=== PATIENT | female | born 2005 | race Caucasian/White ===

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

== ENCOUNTER 2024-10-03 13:43 | Emergency (ER) | payer SELFPAY ==
[2024-10-03 14:33] VITALS: RESP 18
[2024-10-03] MEDS: KETOROLAC 15 MG/ML 1 ML VIAL IM STA (15:30)
[2024-10-03] MEDS: DEXAMETHASONE SOD PHOSPHATE 10 MG/ML 1 ML VIAL IM STA (15:37)
[2024-10-03] MEDS: ORPHENADRINE 30 MG/ML 2 ML VIAL IM STA (16:00)
--- NOTE | 2024-10-03 16:23 | ED ---
General Adult HPI - General Chief complaint: Seizure Stated complaint: Syncope Time Seen by Provider: 10/03/24 15:12 Source: patient Mode of arrival: wheelchair Limitations: no limitations - History of Present Illness Initial comments: 18-year-old female presenting with chief complaint of lower back pain. Patient has history of back pain after receiving an epidural 2 years ago. States that she was at work and twisted while pulling a box and felt sudden onset pain across lower back. No loss of bowel or bladder control or saddle paresthesia. No radiation into the legs or abdomen. No dysuria or hematuria. No fevers or chills. She did have some nausea and vomiting secondary to the pain. No IV drug use. 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 At this time she is alert and oriented showing no evidence of postictal period - Related Data Home Medications Medication Instructions Recorded Confirmed Pnv No.95/Ferrous Fum/Folic AC 1 tab PO DAILY 05/02/22 09/15/22 [ Multivitamin Tablet] Previous Rx's Medication Instructions Recorded Acetaminophen Tab [Tylenol] 650 mg PO Q6H #60 tab 09/16/22 Ondansetron [Zofran] 4 mg PO Q8HR PRN #20 tab 09/16/22 Cyclobenzaprine [Flexeril] 10 mg PO TID PRN #10 tab 10/03/24 Allergies Allergy/AdvReac Type Severity Reaction Status Date / Time amoxicillin Allergy Swelling Verified 09/15/22 15:47 Review of Systems ROS Statement: Those systems with pertinent positive or pertinent negative responses have been documented in the HPI. ROS Other: All systems not noted in ROS Statement are negative. Past Medical History Past Medical History: No Reported History Additional Past Medical History / Comment(s): [facility]. pseudoseizure History of Any Multi-Drug Resistant Organisms: None Reported Past Surgical History: No Surgical Hx Reported Past Anesthesia/Blood Transfusion Reactions: No Reported Reaction Past Psychological History: No Psychological Hx Reported Smoking Status: Former smoker Past Alcohol Use History: None Reported Past Drug Use History: Marijuana - Past Family History Mother Family Medical History: No Reported History Father Family Medical History: Diabetes Mellitus General Exam Limitations: no limitations General appearance: alert, in no apparent distress Head exam: Present: atraumatic, normocephalic, normal inspection Eye exam: Present: normal appearance, PERRL, EOMI Neck exam: Present: normal inspection. Absent: meningismus Respiratory exam: Present: normal lung sounds bilaterally. Absent: respiratory distress, wheezes, rales, rhonchi, stridor Cardiovascular Exam: Present: regular rate, normal rhythm, normal heart sounds. Absent: systolic murmur, diastolic murmur, rubs, gallop, clicks Extremities exam: Present: normal inspection Back exam: Present: normal inspection, paraspinal tenderness. Absent: vertebral tenderness Neurological exam: Present: alert, oriented X3 Expanded Eye Response: (4) open spontaneously Motor Response: (6) obeys commands Verbal Response: (5) oriented Karen Total: 15 Psychiatric exam: Present: normal affect, normal mood Skin exam: Present: warm, dry Course Vital Signs 10/03/24 10/03/24 10/03/24 13:57 14:32 16:32 Temperature 98.7 F 98 F Pulse Rate 86 90 68 Respiratory 16 18 18 Rate Blood Pressure 117/73 98/57 111/78 O2 Sat by Pulse 99 100 98 Oximetry Medical Decision Making - Medical Decision Making Was pt. sent in by a medical professional or institution (, PA, PASTEURIZER, urgent care, hospital, or assisted...) When possible be specific @ -No Did you speak to anyone other than the patient for history (EMS, parent, family, police, friend...)? What history was obtained from this source @ -No Did you review nursing and triage notes (agree or disagree)? Why? @ -I reviewed and agree with nursing and triage notes Were old charts reviewed (outside hosp., previous admission, EMS record, old EKG, old radiological studies, urgent care reports/EKG's, assisted records)? Report findings @ -No old charts were reviewed Differential Diagnosis (chest pain, altered mental status, abdominal pain women, abdominal pain men, vaginal bleeding, weakness, fever, dyspnea, syncope, headache, dizziness, GI bleed, back pain, seizure, CVA, palpatations, mental health, musculoskeletal)? @ - [facility] Differential Back Pain: Strain, zoster, cauda equina syndrome, epidural abscess, vertebral osteomyelitis, discitis, fracture, subluxation, disc herniation, DJD, spinal stenosis, dissection, AAA, pancreatitis, peptic ulcer disease, pyelonephritis, kidney stone this is not meant to be an all-inclusive list. EKG interpreted by me (3pts min.). @ -Sinus bradycardia ventricular rate 58. AR interval 142. QRS 87. QT 387. QTc 385. X-rays interpreted by me (1pt min.). @ -None done CT interpreted by me (1pt min.). @ -None done U/S interpreted by me (1pt. min.). @ -None done What testing was considered but not performed or refused? (CT, X-rays, U/S, labs)? Why? @ -None What meds were considered but not given or refused? Why? @ -None Did you discuss the management of the patient with other professionals (professionals i.e. , PA, PASTEURIZER, lab, RT, psych nurse, protective services social worker, heavy coil winder, teacher, airplane first officer, case assistant)? Give summary @ -No Was smoking cessation discussed for >3mins.? @ -No Was critical care preformed (if so, how long)? @ -No Were there social determinants of health that impacted care today? How? (Homelessness, low income, unemployed, alcoholism, drug addiction, transportation, low edu. Level, literacy, decrease access to med. care, correction, rehab)? @ -No Was there de-escalation of care discussed even if they declined (Discuss DNR or withdrawal of care, Hospice)? DNR status @ -No What co-morbidities impacted this encounter? (DM, HTN, Smoking, COPD, CAD, Cancer, CVA, ARF, Chemo, Hep., AIDS, mental health diagnosis, sleep apnea, morbid obesity)? @ -None Was patient admitted / discharged? Hospital course, mention meds given and route, prescriptions, significant lab abnormalities, going to OR and other pertinent info. @ -18-year-old female presenting with chief complaint of lower back pain. Injured it while at work today, had lower back pain starting after an epidural 2 years ago. No red flag symptoms. Patient does have history of stress and pain induced pseudoseizures, she did have a seizure today. EKG shows sinus bradycardia. Patient is treated with pain medication and on reassessment reports improvement in her symptoms. She feels ready for discharge home. Educated on today's findings and supportive management at home. Discharged. Follow-up with PCP. Report back to ER with any new or worsening symptoms. Discussed return parameters and answered all questions. Patient conveyed verbal understanding and agreed to the plan. I discussed this case in detail with my attending Dr. Mcguire Undiagnosed new problem with uncertain prognosis? @ -No Drug Therapy requiring intensive monitoring for toxicity (Heparin, Nitro, Insulin, Cardizem)? @ -No Were any procedures done? @ -No Diagnosis/symptom? @ -Mechanical back pain, pseudoseizure Acute, or Chronic, or Acute on Chronic? @ -Acute Uncomplicated (without systemic symptoms) or Complicated (systemic symptoms)? @ -Uncomplicated Side effects of treatment? @ -No Exacerbation, Progression, or Severe Exacerbation? @ -No Poses a threat to life or bodily function? How? (Chest pain, [place], [place], pneumonia, PE, COPD, DKA, ARF, appy, cholecystitis, CVA, Diverticulitis, Homicidal, Suicidal, threat to staff... and all critical care pts) @ -Unlikely Disposition Clinical Impression: Mechanical back pain Disposition: HOME SELF-CARE Condition: Good Instructions (If sedation given, give patient instructions): Acute Low Back Pain (ED), Recurrent Seizures in Adults (ED) Additional Instructions: Follow-up with PCP. Report back to ER with any new or worsening symptoms. Take medication as prescribed. Cyclobenzaprine may cause drowsiness. Per [place] law you cannot drive for 6 months after having a seizure. Avoid nonmonitored swimming Prescriptions: Cyclobenzaprine [Flexeril] 10 mg PO TID PRN #10 tab PRN Reason: Spasms Is patient prescribed a controlled substance at d/c from ED?: No Referrals: [facility] [NON-STAFF] - 1-2 days [facility] [NON-STAFF] - 1-2 days None,Stated [Primary Care Provider] - 1-2 days Forms: Area PCPs Time of Disposition: 16:22
[2024-10-03] MEDS: CYCLOBENZAPRINE 10MG STARTER 3 TAB BTL PO STA (16:30)
[2024-10-03 16:34] VITALS: BP 111/78; PULSE 68; TEMP 98
== END 2024-10-03 16:33 | disposition home or self-care (01) ==
LOC: EC 13:43
DX: M54.50 Low back pain, unspecified (principal); R56.9 Unspecified convulsions; R00.1 Bradycardia, unspecified; Z88.0 Allergy status to penicillin; Z87.891 Personal history of nicotine dependence
CPT/HCPCS: 93005; 99284; 96372 ×3; J1100; J2360; J1885

== ENCOUNTER 2024-10-12 20:42 | Observation (INO) | payer OTHER ==
--- NOTE | 2024-10-12 21:24 | ED ---
General Adult HPI - General Chief complaint: Abdominal Pain Stated complaint: abd pain Time Seen by Provider: 10/12/24 21:05 Source: patient, RN notes reviewed, old records reviewed Mode of arrival: ambulatory Limitations: no limitations - History of Present Illness Initial comments: Patient is a 18-year-old female presents emergency department complaining of right upper quadrant abdominal pain. States has been ongoing for 1 week. Has been taking naproxen for it without much improvement. Has a history of cholecystectomy. States there is no way she is . Patient does smoke marijuana. Denies any nausea, vomiting, diarrhea, constipation. Denies any vaginal discharge or bleeding. Denies any urinary complaints. Denies any chest pain or shortness of breath. States she fell asleep weird on a chair a week ago which started the pain. States it is worse with some eating as well as with movement. Has no other acute complaints. Presents for further evaluation.Patient does have a history of pseudoseizures, and recently was seen in our department for that complaint. - Related Data Home Medications Medication Instructions Recorded Confirmed Pnv No.95/Ferrous Fum/Folic AC 1 tab PO DAILY 05/02/22 09/15/22 [ Multivitamin Tablet] Previous Rx's Medication Instructions Recorded Acetaminophen Tab [Tylenol] 650 mg PO Q6H #60 tab 09/16/22 Ondansetron [Zofran] 4 mg PO Q8HR PRN #20 tab 09/16/22 Cyclobenzaprine [Flexeril] 10 mg PO TID PRN #10 tab 10/03/24 Allergies Allergy/AdvReac Type Severity Reaction Status Date / Time amoxicillin Allergy Swelling Verified 10/12/24 20:49 Review of Systems ROS Statement: Those systems with pertinent positive or pertinent negative responses have been documented in the HPI. Review of Systems: CONST: Denies fever EYES: Denies blurry vision ENT: Denies nasal congestion C/V: Denies Chest pain RESP: Denies shortness of breath GI: Endorses right upper quadrant abdominal pain : Denies dysuria SKIN: Denies rash. MSK: Denies joint pain. NEURO: Denies headache ROS Other: All systems not noted in ROS Statement are negative. Past Medical History Past Medical History: No Reported History Additional Past Medical History / Comment(s): CHS. pseudoseizure History of Any Multi-Drug Resistant Organisms: None Reported Past Surgical History: No Surgical Hx Reported Past Anesthesia/Blood Transfusion Reactions: No Reported Reaction Past Psychological History: No Psychological Hx Reported Smoking Status: Former smoker Past Alcohol Use History: None Reported Past Drug Use History: Marijuana - Past Family History Mother Family Medical History: No Reported History Father Family Medical History: Diabetes Mellitus General Exam - General Exam Comments Initial Comments: General: Patient appears in moderate distress secondary to pain. HEAD: Normal with no signs of head trauma. EYES: EOMI ENT: Hearing grossly intact, normal oropharynx. RESPIRATORY: Clear breath sounds bilaterally. No wheezes, rales, or rhonchi. C/V: Regular rate and rhythm. S1 and S2 auscultated, no edema, peripheral pulses 2+ and intact throughout ABD: Abdomen soft, nondistended. Tender palpation in the right upper quadrant. No guarding or rebound tenderness. No peritoneal signs. EXT: No obvious deformity. SKIN: No rashes or lesions observed on exposed skin. NEURO: Alert and oriented x 4. Limitations: no limitations Course Vital Signs 10/12/24 20:46 Temperature 98.1 F Pulse Rate 134 H Respiratory 20 Rate Blood Pressure 101/79 O2 Sat by Pulse 97 Oximetry Medical Decision Making - Medical Decision Making Was pt. sent in by a medical professional or institution (, PA, SALES DEVELOPMENT CONSULTANT, urgent care, hospital, or group home...) When possible be specific @ -No Did you speak to anyone other than the patient for history (EMS, parent, family, police, friend...)? What history was obtained from this source @ -No Did you review nursing and triage notes (agree or disagree)? Why? @ -I reviewed and agree with nursing and triage notes Were old charts reviewed (outside hosp., previous admission, EMS record, old EKG, old radiological studies, urgent care reports/EKG's, group home records)? Report findings @ -No old charts were reviewed Differential Diagnosis (chest pain, altered mental status, abdominal pain women, abdominal pain men, vaginal bleeding, weakness, fever, dyspnea, syncope, headache, dizziness, GI bleed, back pain, seizure, CVA, palpatations, mental health, musculoskeletal)? @ -Differential Abdominal Pain Women: Appendicitis, Cholecystitis, diverticulosis, ischemic bowel, pancreatitis, hepatitis, UTI, gastroenteritis, AAA, incarcerated hernia, bowel obstruction, constipation, inflammatory bowel, hepatitis, peptic ulcer disease, splenic infarction, perforated viscus, vulvitis, ovarian torsion, PID, kidney stone, placenta abruption, this is not meant to be an all-inclusive list EKG interpreted by me (3pts min.). @ -None done X-rays interpreted by me (1pt min.). @ -None done CT interpreted by me (1pt min.). @ -CT imaging remarkable for acute appendicitis. U/S interpreted by me (1pt. min.). @ -None done What testing was considered but not performed or refused? (CT, X-rays, U/S, lab s)? Why? @ -None What meds were considered but not given or refused? Why? @ -None Did you discuss the management of the patient with other professionals (professionals i.e. , PA, SALES DEVELOPMENT CONSULTANT, lab, RT, psych nurse, older adult social work specialist, communications media professor, teacher, airplane first officer, insurance case manager)? Give summary @ - spoke with the patient's surgeon, Dr. Azar who accepted the admission was in agreement with the plan. Was smoking cessation discussed for >3mins.? @ -No Was critical care preformed (if so, how long)? @ -No Were there social determinants of health that impacted care today? How? (Homelessness, low income, unemployed, alcoholism, drug addiction, transportation, low edu. Level, literacy, decrease access to med. care, shelter, rehab)? @ -No Was there de-escalation of care discussed even if they declined (Discuss DNR or withdrawal of care, Hospice)? DNR status @ -No What co-morbidities impacted this encounter? (DM, HTN, Smoking, COPD, CAD, Cancer, CVA, ARF, Chemo, Hep., AIDS, mental health diagnosis, sleep apnea, morbid obesity)? @ -Cholecystectomy Was patient admitted / discharged? Hospital course, mention meds given and route, prescriptions, significant lab abnormalities, going to OR and other pertinent info. @ -Patient presents emergency department complaining of abdominal pain. Has been ongoing for 1 week. No improvement. Will obtain abdominal laboratory studies and CT abdomen pelvis. Patient after multiple questions, continues to reiterate she is not therefore we will obtain CT imaging rather than wait for test. She was in agreement this plan. Patient be sym ptomatic treated with IV fluids, analgesia medications, Zofran, Protonix. Patient was in agreement this plan. Vital signs currently within acceptable limits except for mild tachycardia due to discomfort and pain. After analgesia medication, patient was still having significant pain and therefore was administered both Haldol and Benadryl which did improve the patient's symptoms. Laboratory studies obtained and revealed a leukocytosis of 16.9. The remainder the labs relatively unremarkable. 2+ ketones in the urine. UDS positive for marijuana. White cells in the urine as well but no evidence of bacteria. May be a contaminated catch. CT imaging reveals findings consistent with acute appendicitis with no evidence of appendix rupture or abscess. I updated the patient. She will be admitted to the hospital. She is allergic to amoxicillin. Chart therefore will start on ciprofloxacin and Flagyl. She is made NPO. Will continue with IV fluids, antiemetics, analgesia medications. I spoke with the patient's surgeon, Dr. Azar who accepted the admission was in agreement with the plan. Undiagnosed new problem with uncertain prognosis? @ -No Drug Therapy requiring intensive monitoring for toxicity (Heparin, Nitro, Insulin, Cardizem)? @ -No Were any procedures done? @ -No Diagnosis/symptom? @ -Appendicitis Acute, or Chronic, or Acute on Chronic? @ -Acute Uncomplicated (without systemic symptoms) or Complicated (systemic symptoms)? @ -Complicated Side effects of treatment? @ -None Exacerbation, Progression, or Severe Exacerbation] @ -No Poses a threat to life or bodily function? @ -Yes - Lab Data Result diagrams: 10/12/24 21:27 10/12/24 21:27 Lab Results 10/12/24 10/12/24 10/12/24 Range/Units 21:27 21:27 21:27 WBC 16.9 H (4.0-11.0) k/uL RBC 4.28 (3.80-5.40) m/uL Hgb 10.7 L (11.4-16.0) gm/dL Hct 32.9 L (34.0-46.0) % MCV 76.8 L (80.0-100.0) fL MCH 25.0 (25.0-35.0) pg MCHC 32.6 (31.0-37.0) g/dL RDW 15.4 (11.5-15.5) % Plt Count 534 H (150-450) k/uL MPV 7.4 Neutrophils % 83 % Lymphocytes % 12 % Monocytes % 3 % Eosinophils % 1 % Basophils % 0 % Neutrophils # 13.9 H (1.3-7.7) k/uL Lymphocytes # 2.0 (1.0-4.8) k/uL Monocytes # 0.6 (0-1.0) k/uL Eosinophils # 0.2 (0-0.7) k/uL Basophils # 0.1 (0-0.2) k/uL Microcytosis Slight PT 11.6 (10.0-12.5) sec INR 1.1 (<1.2) APTT 26.7 (22.0-30.0) sec Sodium 141 (137-145) mmol/L Potassium 3.9 (3.5-5.1) mmol/L Chloride 107 (98-107) mmol/L Carbon Dioxide 19 L (22-30) mmol/L Anion Gap 15 mmol/L BUN 18 H (7-17) mg/dL Creatinine 0.73 (0.52-1.04) mg/dL Est GFR (CKD-EPI)AfAm >90 (>60 ml/min/1.73 sqM) Est GFR (CKD-EPI)NonAf >90 (>60 ml/min/1.73 sqM) Glucose 99 (74-99) mg/dL Plasma Lactic Acid Jamei (0.7-2.0) mmol/L Calcium 10.1 (8.4-10.2) mg/dL Total Bilirubin 0.4 (0.2-1.3) mg/dL AST 22 (14-36) U/L ALT 15 (4-34) U/L Alkaline Phosphatase 81 (38-126) U/L Total Protein 8.0 (6.3-8.2) g/dL Albumin 4.6 (3.5-5.0) g/dL Amylase 42 (30-110) U/L Lipase 35 (23-300) U/L Urine Color Urine Appearance (Clear) Urine pH (5.0-8.0) Ur Specific [place] (1.001-1.035) Urine Protein (Negative) Urine Glucose (UA) (Negative) Urine Ketones (Negative) Urine Blood (Negative) Urine Nitrite (Negative) Urine Bilirubin (Negative) Urine Urobilinogen (<2.0) mg/dL Ur Leukocyte Esterase (Negative) Urine RBC (0-5) /hpf Urine WBC (0-5) /hpf Ur Squamous Epith Cells (0-4) /hpf Urine Mucus (None) /hpf Urine Opiates Screen (NotDetected) Ur Oxycodone Screen (NotDetected) Urine Methadone Screen (NotDetected) Ur Barbiturates Screen (NotDetected) U Tricyclic Antidepress (NotDetected) Ur Phencyclidine Scrn (NotDetected) Ur Amphetamines Screen (NotDetected) U Methamphetamines Scrn (NotDetected) U Benzodiazepines Scrn (NotDetected) Urine Cocaine Screen (NotDetected) U Marijuana (THC) Screen (NotDetected) 10/12/24 10/12/24 10/12/24 Range/Units 21:27 21:43 21:43 WBC (4.0-11.0) k/uL RBC (3.80-5.40) m/uL Hgb (11.4-16.0) gm/dL Hct (34.0-46.0) % MCV (80.0-100.0) fL MCH (25.0-35.0) pg MCHC (31.0-37.0) g/dL RDW (11.5-15.5) % Plt Count (150-450) k/uL MPV Neutrophils % % Lymphocytes % % Monocytes % % Eosinophils % % Basophils % % Neutrophils # (1.3-7.7) k/uL Lymphocytes # (1.0-4.8) k/uL Monocytes # (0-1.0) k/uL Eosinophils # (0-0.7) k/uL Basophils # (0-0.2) k/uL Microcytosis PT (10.0-12.5) sec INR (<1.2) APTT (22.0-30.0) sec Sodium (137-145) mmol/L Potassium (3.5-5.1) mmol/L Chloride (98-107) mmol/L Carbon Dioxide (22-30) mmol/L Anion Gap mmol/L BUN (7-17) mg/dL Creatinine (0.52-1.04) mg/dL Est GFR (CKD-EPI)AfAm (>60 ml/min/1.73 sqM) Est GFR (CKD-EPI)NonAf (>60 ml/min/1.73 sqM) Glucose (74-99) mg/dL Plasma Lactic Acid Jamie 1.9 (0.7-2.0) mmol/L Calcium (8.4-10.2) mg/dL Total Bilirubin (0.2-1.3) mg/dL AST (14-36) U/L ALT (4-34) U/L Alkaline Phosphatase (38-126) U/L Total Protein (6.3-8.2) g/dL Albumin (3.5-5.0) g/dL Amylase (30-110) U/L Lipase (23-300) U/L Urine Color Yellow Urine Appearance Cloudy H (Clear) Urine pH 5.5 (5.0-8.0) Ur Specific [place] 1.029 (1.001-1.035) Urine Protein 1+ H (Negative) Urine Glucose (UA) Negative (Negative) Urine Ketones 2+ H (Negative) Urine Blood Negative (Negative) Urine Nitrite Negative (Negative) Urine Bilirubin Negative (Negative) Urine Urobilinogen 2.0 (<2.0) mg/dL Ur Leukocyte Esterase Moderate H (Negative) Urine RBC 1 (0-5) /hpf Urine WBC 14 H (0-5) /hpf Ur Squamous Epith Cells 3 (0-4) /hpf Urine Mucus Many H (None) /hpf Urine Opiates Screen Detected H (NotDetected) Ur Oxycodone Screen Not Detected (NotDetected) Urine Methadone Screen Not Detected (NotDetected) Ur Barbiturates Screen Not Detected (NotDetected) U Tricyclic Antidepress Not Detected (NotDetected) Ur Phencyclidine Scrn Not Detected (NotDetected) Ur Amphetamines Screen Not Detected (NotDetected) U Methamphetamines Scrn Not Detected (NotDetected) U Benzodiazepines Scrn Not Detected (NotDetected) Urine Cocaine Screen Not Detected (NotDetected) U Marijuana (THC) Screen Detected H (NotDetected) Disposition Clinical Impression: Appendicitis Disposition[facility] Condition: Stable Referrals: None,Stated [Primary Care Provider] - 1-2 days Time of Disposition: 22:40
[2024-10-12] MEDS: MORPHINE SULFATE 4 MG/ML SYRINGE IVP STA (21:32)
[2024-10-12] MEDS: ONDANSETRON 4 MG/2 ML VIAL IVP STA (21:35)
[2024-10-12] MEDS: PANTOPRAZOLE 40 MG/10 ML VIAL IVP STA (21:37)
[2024-10-12 21:47] LABS: Basophils # (A) 0.1 k/uL (0-0.2); Basophils % (A) 0 %; Eosinophils # (A) 0.2 k/uL (0-0.7); Eosinophils % (A) 1 %; HCT 32.9 % (34.0-46.0); HGB 10.7 gm/dL (11.4-16.0); Lymphocytes % (A) 12 %; MCHC 32.6 g/dL (31.0-37.0); MCV 76.8 fL (80.0-100.0); Mean Platelet Volume 7.4; Microcytosis Slight; Monocytes # (A) 0.6 k/uL (0-1.0); Monocytes % (A) 3 %; Neutrophils # (A) 13.9 k/uL (1.3-7.7); Neutrophils % (A) 83 %; Platelet Count 534 k/uL (150-450); RBC 4.28 m/uL (3.80-5.40); RDW 15.4 % (11.5-15.5); WBC 16.9 k/uL (4.0-11.0)
[2024-10-12] MEDS: SODIUM CHLORIDE 0.9% 1,000 ML IV STA ×2 (21:53→23:37)
[2024-10-12 22:00] LABS: INR 1.1 (<1.2); Partial Thromboplastin Time 26.7 sec (22.0-30.0); Prothrombin Time 11.6 sec (10.0-12.5)
[2024-10-12] MEDS: diphenhydrAMINE 50 MG/ML 1 ML VIAL IVP STA (22:02)
[2024-10-12] MEDS: HALOPERIDOL LACTATE 5 MG/ML 1 ML VIAL IVP STA (22:03)
[2024-10-12 22:06] LABS: Appearance,Urine Cloudy (Clear); Bilirubin,Urine Negative (Negative); Blood,Urine Negative (Negative); Color,Urine Yellow; Glucose,Urine (UA) Negative (Negative); Ketones,Urine 2+ (Negative); Leukocyte Esterase,Urine Moderate (Negative); Mucus,Urine Many /hpf; Nitrite,Urine Negative (Negative); PH, Urine 5.5 (5.0-8.0); Protein,Urine 1+ (Negative); RBC,Urine 1 /hpf (0-5); Specific Gravity,Urine 1.029 (1.001-1.035); Squamous Epithelial Cell,Urine 3 /hpf (0-4); WBC,Urine 14 /hpf (0-5)
[2024-10-12 22:07] LABS: ALT 15 U/L (4-34); AST 22 U/L (14-36); African American GFR (CKD) >90 (>60 ml/min/1.73 sqM); Albumin 4.6 g/dL (3.5-5.0); Alkaline Phosphatase 81 U/L (38-126); Amylase 42 U/L (30-110); Anion Gap 15 mmol/L; Blood Urea Nitrogen 18 mg/dL (7-17); Calcium 10.1 mg/dL (8.4-10.2); Carbon Dioxide 19 mmol/L (22-30); Chloride 107 mmol/L (98-107); Glucose 99 mg/dL (74-99); Lipase 35 U/L (23-300); Non-African American GFR(CKD) >90 (>60 ml/min/1.73 sqM); Potassium 3.9 mmol/L (3.5-5.1); Sodium 141 mmol/L (137-145); Total Bilirubin 0.4 mg/dL (0.2-1.3)
--- NOTE | 2024-10-12 22:19 | CT ---
EXAMINATION TYPE: CT abdomen pelvis w con DATE OF EXAM: 10/12/2024 9:53 PM COMPARISON: CT abdomen pelvis most recent from CLINICAL INDICATION: Female, 18 years old with history of abdominal pain. RUQ. hx of cholecystectomy; TECHNIQUE: Axial CT abdomen pelvis w con;Sagittal and coronal reformats were created on a separate w orkstation. Automated exposure control for dose reduction was used. FINDINGS: LOWER CHEST: Unremarkable ABDOMEN LIVER: Unremarkable GALLBLADDER AND BILE DUCTS: Gallbladder surgically absent. Dilated CBD, likely postcholecystectomy re lated. PANCREAS: Unremarkable. SPLEEN: Unremarkable. ADRENAL GLANDS: Unremarkable. KIDNEYS AND URETERS: No evidence of hydronephrosis or renal calculus. The ureters are unremarkable. PELVIS BLADDER: No evidence for wall thickening or mass given limitations of exam. REPRODUCTIVE: Unremarkable. ABDOMEN & PELVIS STOMACH AND BOWEL: No evidence of bowel obstruction. Liquid stool in the ascending colon suggesting d iarrhea. Overall, evaluation limited due to paucity of intra-abdominal fat. There is avid enhancement and wall thickening of the appendix with adjacent fat stranding in the right lower quadrant (axial s eries image 61). Appendix measures approximately 5-6 mm in diameter and is fluid-filled. Nonspecific fluid-filled nondilated small bowel loops could reflect ileus. PERITONEUM/RETROPERITONEUM: No evidence of pneumoperitoneum or free fluid. VASCULATURE: No evidence of aortic aneurysm. MUSCULOSKELETAL: No acute osseous abnormalities LYMPH NODES: No gross evidence for lymphadenopathy. SOFT TISSUE/ABDOMINAL WALL: Unremarkable IMPRESSION: Avid enhancement/wall thickening of the appendix with adjacent right lower quadrant mesenteric fat st randing. Appendix is near the upper limits of normal in caliber and appears fluid filled. Overall, fi ndings are suggestive of developing/early acute appendicitis in the appropriate clinical setting. No evidence of abscess or free air. [facility], , 10/12/2024 10:17 PM
[2024-10-12 22:28] LABS: Amphetamine Screen,Urine Not Detected (NotDetected); Barbiturate Screen,Urine Not Detected (NotDetected); Benzodiazepines Screen,Urine Not Detected (NotDetected); Cocaine Screen,Urine Not Detected (NotDetected); Methadone Screen, Urine Not Detected (NotDetected); Opiate Screen,Urine Detected (NotDetected); Oxycodone Screen, Urine Not Detected (NotDetected); Phencyclidine Screen,Urine Not Detected (NotDetected); Tricyclic Antidepressant,Urine Not Detected (NotDetected); Urn Cannabinoid Scrn Detected (NotDetected)
[2024-10-12] MEDS ORDERED: NALOXONE 0.4 MG/ML 1 ML VIAL IV PRN (22:38)
[2024-10-12] MEDS: metroNIDAZOLE-NS PMX 500 MG in SALINE 1 100ML.BAG IVPB SCH (22:44)
[2024-10-13] MEDS: MORPHINE SULFATE 4 MG/ML SYRINGE IV PRN (00:22)
[2024-10-13] MEDS: LEVOFLOXACIN 500MG-D5W PMX 500 MG in DEXTROSE/WATER 1 100ML.BAG IVPB SCH (02:04)
[2024-10-13] MEDS: SODIUM CHLORIDE 0.9% 1,000 ML IV STA (02:04)
[2024-10-13 04:36] LABS: Basophils % (A) 0 %; Eosinophils # (A) 0.2 k/uL (0-0.7); Eosinophils % (A) 2 %; HCT 28.3 % (34.0-46.0); Hypochromasia Moderate; Lymphocytes # (A) 2.2 k/uL (1.0-4.8); Lymphocytes % (A) 20 %; MCH 26.3 pg (25.0-35.0); MCHC 32.4 g/dL (31.0-37.0); MCV 81.2 fL (80.0-100.0); Mean Platelet Volume 7.1; Monocytes # (A) 0.8 k/uL (0-1.0); Monocytes % (A) 8 %; Neutrophils # (A) 7.3 k/uL (1.3-7.7); Neutrophils % (A) 69 %; Platelet Count 336 k/uL (150-450); RBC 3.48 m/uL (3.80-5.40); RDW 15.6 % (11.5-15.5); WBC 10.7 k/uL (4.0-11.0)
[2024-10-13 04:42] LABS: HGB 9.2 gm/dL (11.4-16.0)
[2024-10-13 04:45] LABS: ALT 24 U/L (4-34); AST 50 U/L (14-36); African American GFR (CKD) >90 (>60 ml/min/1.73 sqM); Albumin 3.2 g/dL (3.5-5.0); Alkaline Phosphatase 80 U/L (38-126); Anion Gap 8 mmol/L; Blood Urea Nitrogen 15 mg/dL (7-17); Calcium 8.3 mg/dL (8.4-10.2); Carbon Dioxide 18 mmol/L (22-30); Chloride 112 mmol/L (98-107); Glucose 83 mg/dL (74-99); Non-African American GFR(CKD) >90 (>60 ml/min/1.73 sqM); Potassium 3.2 mmol/L (3.5-5.1); Sodium 138 mmol/L (137-145); Total Bilirubin 0.5 mg/dL (0.2-1.3)
[2024-10-13] MEDS: metroNIDAZOLE-NS PMX 500 MG in SALINE 1 100ML.BAG IVPB SCH (06:49)
[2024-10-13] MEDS: POTASSIUM CHLORIDE ER 20 MEQ TAB.ER PO STA (09:15)
[2024-10-13] MEDS: PANTOPRAZOLE 40 MG/10 ML VIAL IV SCH (09:15)
--- NOTE | 2024-10-13 10:47 | P.GSHP ---
History of Present Illness H&P Date: 10/13/24 CHIEF COMPLAINT: Abdominal pain HISTORY OF PRESENT ILLNESS: This is a 18-year-old female who presented to the hospital with complaints of right upper quadrant abdominal pain. Patient reports that she has had pain for about 1 week. She reports that the pain initially started in the right lower quadrant and is now moved up into the right upper quadrant of the abdomen. She denies any nausea or vomiting. She does report having some chills and sweats. CT scan abdomen pelvis had reported possible early development of appendicitis with evidence of wall thickening of the appendix and fat stranding. Past surgical history does include cholecystectomy. She denies any cardiac history. PAST MEDICAL HISTORY: none PAST SURGICAL HISTORY: Cholecystectomy MEDICATIONS: See below ALLERGIES: See below SOCIAL HISTORY: No illicit drug use. Patient reports it has been over a week since she last used marijuana REVIEW OF SYSTEMS: CONSTITUTIONAL: Denies fever or chills. HEENT: Denies blurred vision, vision changes, or eye pain. Denies hemoptysis CARDIOVASCULAR: Denies chest pain or pressure. RESPIRATORY: No shortness of breath. GASTROINTESTINAL: See HPI for pertinent findings HEMATOLOGIC: Denies bleeding disorders. GENITOURINARY: Denies any blood in urine or increased urinary frequency. SKIN: Denies pruitis. Denies rash. PHYSICAL EXAM: VITAL SIGNS: Reviewed GENERAL: Well-developed in no acute distress. HEENT: No sclera icterus. Extraocular movements grossly intact. Moist buccal mucosa. Head is atraumatic, normocephalic. No nasal drainage. ABDOMEN: Soft. Nondistended. Tenderness with palpation to the whole right side of the abdomen and down into the right lower quadrant. No guarding. No rebound tenderness NEUROLOGIC: Alert and oriented. Cranial nerves II through XII grossly intact. LABORATORY DATA: WBC 16.9 down to 10.7 Hgb 9.2 platelets 336 Sodium 138 potassium 3.2 creatinine 0.64 Urine hCG not detected Urine drug screen positive for opiates and marijuana use IMAGING: CT scan abdomen pelvis enhancement/wall thickening of the appendix with adjacent right lower quadrant mesenteric fat stranding. Appendix is near the upper limits of normal in caliber and appears fluid-filled. Overall findings suggest developing/early acute appendicitis. No abscess or free air. ASSESSMENT: 1. Acute appendicitis 2. Hypokalemia PLAN: -Patient scheduled for laparoscopic appendectomy today -Patient receiving potassium supplement -Keep patient n.p.o. -Continue antibiotics -Continue IV fluids -Continue pain management Physician Fire Control Technician B note has been reviewed by physician. Signing provider agrees with the documented findings, assessment, and plan of care. Past Medical History Past Medical History: No Reported History Additional Past Medical History / Comment(s): . pseudoseizure History of Any Multi-Drug Resistant Organisms: None Reported Past Surgical History: Cholecystectomy Past Anesthesia/Blood Transfusion Reactions: No Reported Reaction Past Psychological History: No Psychological Hx Reported Smoking Status: Former smoker Past Alcohol Use History: None Reported Additional Past Alcohol Use History / Comment(s): pt reports "use to be an alcoholic" stoppped drinking 4 years ago Past Drug Use History: Marijuana - Past Family History Mother Family Medical History: No Reported History Father Family Medical History: Diabetes Mellitus Medications and Allergies Home Medications Medication Instructions Recorded Confirmed Type Naproxen Sodium 550 mg PO Q8H PRN 10/13/24 10/13/24 History Allergies Allergy/AdvReac Type Severity Reaction Status Date / Time amoxicillin Allergy Anaphylaxis/swelling Verified 10/13/24 08:49 of feet/rash Surgical - Exam Vital Signs Temp Pulse Resp BP Pulse Ox 98.1 F 134 H 20 101/79 97 10/12/24 20:46 10/12/24 20:46 10/12/24 20:46 10/12/24 20:46 10/12/24 20:46 Results - Labs 10/13/24 04:08 10/13/24 04:08 Abnormal Lab Results - Last 24 Hours (Table) 10/12/24 10/12/24 10/12/24 Range/Units 21:27 21:27 21:43 WBC 16.9 H (4.0-11.0) k/uL RBC (3.80-5.40) m/uL Hgb 10.7 L (11.4-16.0) gm/dL Hct 32.9 L (34.0-46.0) % MCV 76.8 L (80.0-100.0) fL RDW (11.5-15.5) % Plt Count 534 H (150-450) k/uL Neutrophils # 13.9 H (1.3-7.7) k/uL Potassium (3.5-5.1) mmol/L Chloride (98-107) mmol/L Carbon Dioxide 19 L (22-30) mmol/L BUN 18 H (7-17) mg/dL Calcium (8.4-10.2) mg/dL AST (14-36) U/L Total Protein (6.3-8.2) g/dL Albumin (3.5-5.0) g/dL Urine Appearance Cloudy H (Clear) Urine Protein 1+ H (Negative) Urine Ketones 2+ H (Negative) Ur Leukocyte Esterase Moderate H (Negative) Urine WBC 14 H (0-5) /hpf Urine Mucus Many H (None) /hpf Urine Opiates Screen (NotDetected) U Marijuana (THC) Screen (NotDetected) 10/12/24 10/13/24 10/13/24 Range/Units 21:43 04:08 04:08 WBC (4.0-11.0) k/uL RBC 3.48 L (3.80-5.40) m/uL Hgb 9.2 L D (11.4-16.0) gm/dL Hct 28.3 L (34.0-46.0) % MCV (80.0-100.0) fL RDW 15.6 H (11.5-15.5) % Plt Count (150-450) k/uL Neutrophils # (1.3-7.7) k/uL Potassium 3.2 L (3.5-5.1) mmol/L Chloride 112 H (98-107) mmol/L Carbon Dioxide 18 L (22-30) mmol/L BUN (7-17) mg/dL Calcium 8.3 L (8.4-10.2) mg/dL AST 50 H (14-36) U/L Total Protein 6.0 L (6.3-8.2) g/dL Albumin 3.2 L (3.5-5.0) g/dL Urine Appearance (Clear) Urine Protein (Negative) Urine Ketones (Negative) Ur Leukocyte Esterase (Negative) Urine WBC (0-5) /hpf Urine Mucus (None) /hpf Urine Opiates Screen Detected H (NotDetected) U Marijuana (THC) Screen Detected H (NotDetected) Diabetes panel 10/12/24 10/13/24 Range/Units 21:27 04:08 Sodium 141 138 (137-145) mmol/L Potassium 3.9 3.2 L (3.5-5.1) mmol/L Chloride 107 112 H (98-107) mmol/L Carbon Dioxide 19 L 18 L (22-30) mmol/L BUN 18 H 15 (7-17) mg/dL Creatinine 0.73 0.64 (0.52-1.04) mg/dL Glucose 99 83 (74-99) mg/dL Calcium 10.1 8.3 L (8.4-10.2) mg/dL AST 22 50 H (14-36) U/L ALT 15 24 (4-34) U/L Alkaline Phosphatase 81 80 (38-126) U/L Total Protein 8.0 6.0 L (6.3-8.2) g/dL Albumin 4.6 3.2 L (3.5-5.0) g/dL Calcium panel 10/12/24 10/13/24 Range/Units 21:27 04:08 Calcium 10.1 8.3 L (8.4-10.2) mg/dL Albumin 4.6 3.2 L (3.5-5.0) g/dL Pituitary panel 10/12/24 10/13/24 Range/Units 21:27 04:08 Sodium 141 138 (137-145) mmol/L Potassium 3.9 3.2 L (3.5-5.1) mmol/L Chloride 107 112 H (98-107) mmol/L Carbon Dioxide 19 L 18 L (22-30) mmol/L BUN 18 H 15 (7-17) mg/dL Creatinine 0.73 0.64 (0.52-1.04) mg/dL Glucose 99 83 (74-99) mg/dL Calcium 10.1 8.3 L (8.4-10.2) mg/dL Adrenal panel 10/12/24 10/13/24 Range/Units 21:27 04:08 Sodium 141 138 (137-145) mmol/L Potassium 3.9 3.2 L (3.5-5.1) mmol/L Chloride 107 112 H (98-107) mmol/L Carbon Dioxide 19 L 18 L (22-30) mmol/L BUN 18 H 15 (7-17) mg/dL Creatinine 0.73 0.64 (0.52-1.04) mg/dL Glucose 99 83 (74-99) mg/dL Calcium 10.1 8.3 L (8.4-10.2) mg/dL Total Bilirubin 0.4 0.5 (0.2-1.3) mg/dL AST 22 50 H (14-36) U/L ALT 15 24 (4-34) U/L Alkaline Phosphatase 81 80 (38-126) U/L Total Protein 8.0 6.0 L (6.3-8.2) g/dL Albumin 4.6 3.2 L (3.5-5.0) g/dL
[2024-10-13] MEDS: HYDROmorphone 1 MG/ML 1 ML SYRINGE IVP PRN (11:41)
[2024-10-13 15:23] VITALS: BMI 18.8
[2024-10-13] MEDS: IV FLUID CONTINUATION 1,000 ML IV ONE (17:11)
[2024-10-13] MEDS: ONDANSETRON 4 MG/2 ML VIAL IVP PRN (17:15)
[2024-10-13] MEDS: HEPARIN SODIUM,PORCINE 5,000 UNIT/ML 1 ML VIAL SQ STA (17:17)
[2024-10-13] MEDS ORDERED: ROCURONIUM 10 MG/ML (5 ML VIAL) IV ONE (17:48)
[2024-10-13] MEDS ORDERED: SUCCINYLCHOLINE CHLORIDE 200 MG/10 ML VIAL IV ONE (17:48)
[2024-10-13] MEDS ORDERED: PROPOFOL 10 MG/ML 20 ML VIAL IV ONE (17:48)
[2024-10-13] MEDS ORDERED: LIDOCAINE 1% INJ 10MG/ML (20 ML MDV) ONE (17:48)
[2024-10-13] MEDS ORDERED: HYDROmorphone (PF) 1 MG/ML ONE (17:48)
[2024-10-13] MEDS ORDERED: fentaNYL (PF) 50 MCG/ML 2 ML AMP ONE (17:48)
[2024-10-13] MEDS ORDERED: MIDAZOLAM 2 MG/2 ML VIAL ONE (17:48)
[2024-10-13] MEDS ORDERED: NEOSTIGMINE 1 MG/ML 10 ML VIAL ONE (17:48)
[2024-10-13] MEDS ORDERED: GLYCOPYRROLATE 0.2 MG/ML 2 ML VIAL ONE (17:48)
[2024-10-13] MEDS ORDERED: KETOROLAC 15 MG/ML 1 ML VIAL ONE (17:48)
[2024-10-13] MEDS: LIDOCAINE 1%-EPI 1:100,000 20 ML VIAL SQ ONE (18:06)
[2024-10-13] MEDS ORDERED: ONDANSETRON 4 MG/2 ML VIAL IVP PRN (18:20)
[2024-10-13] MEDS ORDERED: HYDROmorphone 1 MG/ML 1 ML SYRINGE IVP PRN (18:20)
--- NOTE | 2024-10-13 18:20 | P.OP ---
Date of Procedure: 10/13/24 Preoperative Diagnosis: Appendicitis Postoperative Diagnosis: Appendicitis Procedure(s) Performed: Laparoscopic appendectomy Anesthesia: KRISH Surgeon: Luisito Azar Pathology: other (Appendix) Condition: stable Disposition: PACU Description of Procedure: Ro the patient's placed on the operating table in the supine position. The patient received general anesthesia. The abdomen was prepped and draped in the usual sterile fashion. The skin was anesthetized 1% local Xylocaine at the trocar sites. Using an 11 blade the skin was incised at the umbilicus. The umbilicus was grasped with a Sebree clamp and then a Veress needle was placed into the peritoneal cavity. Position of the Veress needle was confirmed with positive drop test. After adequate insufflation a 5 mm trocar was placed into the peritoneal cavity. The abdomen was further insufflated. And then the laparoscope was placed in the peritoneal cavity. Next a 5 mm trocar was placed in the midline suprapubic position. And then a 10 mm trocar was placed in the midline epigastric position. The patient was rotated with the right side up and in Trendelenburg. The appendix was visualized. The appendix appeared to be inflamed. The appendix was grasped and then using the Harmonic scissors the mesoappendix was divided. A PDS Endoloop was then placed around the base of the appendix. And then the appendix was divided using Harmonic scissors. The appendix was placed into an Endo Catch and brought out through the 10 mm trocar site. The abdomen was irrigated. There is no bleeding seen. The trochars withdrawn. The skin was closed interrupted 3-0 Monocryl suture. Dermabond dressing was applied. Patient was sent to recovery room in stable condition.
[2024-10-13] MEDS: HYDROmorphone 0.5 MG/0.5 ML SYRINGE IVP STA (19:06)
[2024-10-13] MEDS: HYDROcodone/APAP 7.5-325MG 1 EACH TAB PO PRN (20:39)
[2024-10-13] MEDS ORDERED: LORazepam 2 MG/ML INJ IV PRN (21:14)
[2024-10-13] MEDS: diphenhydrAMINE 50 MG/ML 1 ML VIAL IVP PRN (21:23)
[2024-10-14] MEDS: KETOROLAC 15 MG/ML 1 ML VIAL IVP PRN (03:32)
[2024-10-14 07:00] VITALS: BP 109/69; PULSE 69; RESP 21; TEMP 98.2
[2024-10-14] MEDS: ENOXAPARIN 40 MG/0.4 ML SYRINGE SQ SCH (08:01)
--- NOTE | 2024-10-14 09:39 | P.CONS ---
History of Present Illness - Reason for Consult Consult date: 10/14/24 Medical Management Requesting physician: Luisito Azar - History of Present Illness History of Presenting Illness: Patient is a 18-year-old female with a past medical history of pseudoseizures, anxiety, daily alcohol use, and previous reports of alcohol abuse. She is currently admitted under general surgery team and underwent a laparoscopic appendectomy on 10/13/[address] Azar. We were consulted for medical management/medical clearance for discharge. Patient seen and fully evaluated in room 622. She was alert and oriented x 4. Patient reports persistent posts urgical pain/discomfort to diffuse abdomen. Abdomen soft slightly distended with laparoscopic incisions intact. Patient tolerating oral intake with regular diet and has had no episodes of nausea or vomiting. Patient having no reported seizure activity throughout hospitalization, but does have history of reports of pseudoseizures. Review of systems: Pertinent positives and negatives as discussed in HPI, a complete review of systems was performed and all other systems are negative. Physical exam: Vital signs reviewed and stable. General: Nontoxic, no distress and appears stated age. Derm: Skin warm and dry, normal coloration for ethnicity. Head: Atraumatic, normocephalic and symmetric. Eyes: EOM's intact, no lid lag, and anicteric sclera Mouth: no lip lesions, mucus membranes moist Cardiovascular: regular rate and rhythm with normal S1S2, no murmur, positive posterior tibial pulses bilaterally, and cap refill < 2 seconds. Lungs: Respirations even, regular, and unlabored on room air. Lungs CTA bilaterally, no rhonchi, no rales, no wheezing, and no accessory muscle usage. Abdominal: soft slightly distended, tenderness to palpation surrounding laparoscopic incision sites, no guarding, no appreciable organomegaly. Laparoscopic incisions intact. Ext: ROM intact. No gross muscle atrophy, no edema, no contractures Neuro: Speech clear, face symmetrical and CN II-XII grossly intact with no noted focal neuro deficits Psych: Alert and oriented to person, place, time, and situation. Appropriate and pleasant affect. Assessment and Plan of Care: Acute appendicitis Sepsis upon admission, secondary to above Leukocytosis. Suspected to be reactive secondary to above and has resolved. Thrombocytosis. Suspected to be reactive secondary to above and has resolved. -Sepsis on arrival with heart rate 134, respiratory rate of 20, and WBC count of 16.9. -Continue IV antibiotics with Levaquin 500 mg IVPB daily and Flagyl 500 mg IVPB every 8 hours. -General Surgery managing and took patient for a laparoscopic appendectomy on 10/13/2024. -Continue symptomatic care and pain management. -Encourage ambulation. Hypokalemia Non-anion gap metabolic acidosis -Potassium replaced with K-Dur 40 mEq p.o. x 1 dose. -Patient received IV fluid hydration. Pseudoseizures Anxiety -Recommend establishing care with outpatient PCP, patient provided with information for residency clinic for long-term monitoring/management of anxiety and previous pseudoseizures. Acute postoperative blood loss anemia -Preoperative hemoglobin 10.7 and postoperative hemoglobin of 9.2. This is a stable and expected finding, no need for transfusion or further intervention at this time. Data reviewed: -Initially upon arrival to our facility WBC count 16.9, hemoglobin 10.7, platelet count of 534. Postoperative labs show acute postoperative blood loss anemia with hemoglobin of 9.2 and full resolution of leukocytosis with WBC count decreasing from 16.9 down to 10.7 as well as full resolution of thrombocytosis with platelet count decreasing from 534 down to 336 this morning. BMP showing hypokalemia with potassium of 3.2 and non-anion gap metabolic acidosis with chloride of 112, bicarb of 18, and anion gap of 8. Liver profile showing slightly elevated AST of 50 otherwise normal findings. Urine hCG negative for . Urinalysis positive for blood and negative for infection. -Vital signs reviewed and stable. Blood pressure 109/69, heart rate 69, respiratory rate 21, temp 98.2 F, and SpO2 of 99% on room air. Thank you for allowing us to participate in the care of this pleasant patient. Do not hesitate to contact us with questions. Someone can be reached from the [facility] hospitalist group all hours of the day at [phone] or via [employer]. Patient was seen independently by Nurse Practitioner. This document was prepared using [employer] dictation software. Please allow for errors in language tutor while rare they do occur. Deven Jones NP rendered care for this patient independently, reviewed the findings and plan as documented in the note above and agree with plan. I did not physically speak with or examine the patient on this date. Past Medical History Past Medical History: No Reported History Additional Past Medical History / Comment(s): . pseudoseizure History of Any Multi-Drug Resistant Organisms: None Reported Past Surgical History: Cholecystectomy Past Anesthesia/Blood Transfusion Reactions: No Reported Reaction Past Psychological History: No Psychological Hx Reported Smoking Status: Former smoker Past Alcohol Use History: None Reported Additional Past Alcohol Use History / Comment(s): pt reports "use to be an alcoholic" stoppped drinking 4 years ago Past Drug Use History: Marijuana - Past Family History Mother Family Medical History: No Reported History Father Family Medical History: Diabetes Mellitus Medications and Allergies Home Medications Medication Instructions Recorded Confirmed Type Naproxen Sodium 550 mg PO Q8H PRN 10/13/24 10/13/24 History Docusate [Colace] 100 mg PO BID #30 capsule 10/14/24 Rx HYDROcodone/APAP 7.5-325MG [[place] 1 tab PO Q6HR PRN 3 Days #12 tab 10/14/24 Rx 7.5-325] Levofloxacin [Levaquin] 500 mg PO DAILY 7 Days #7 tab 10/14/24 Rx metroNIDAZOLE [Flagyl] 500 mg PO TID 7 Days #21 tab 10/14/24 Rx Allergies Allergy/AdvReac Type Severity Reaction Status Date / Time amoxicillin Allergy Anaphylaxis/swelling Verified 10/13/24 08:49 of feet/rash Physical Exam Vitals: Vital Signs Temp Pulse Resp BP BP Pulse Ox 10/14/24 06:58 98.2 F 69 21 109/69 99 10/14/24 02:00 98.8 F 72 17 105/65 98 10/13/24 20:15 60 16 112/66 99 10/13/24 20:00 97.4 F L 76 17 106/51 86 L 10/13/24 19:45 65 16 112/51 100 10/13/24 19:30 59 L 16 132/63 100 10/13/24 19:15 55 L 16 113/58 100 10/13/24 19:00 68 16 115/59 100 10/13/24 18:45 57 L 16 106/53 100 10/13/24 18:30 97 F L 65 16 115/55 100 10/13/24 17:09 98.5 F 73 16 127/64 100 10/13/24 15:00 97.9 F 64 16 119/67 99 10/13/24 09:10 97.8 F 75 16 112/69 98 Intake and Output 10/13/24 10/14/24 10/14/24 22:59 06:59 14:59 Intake Total 800 Output Total 5 Balance 795 Intake: IV 800 Output: Estimated Blood Loss 5 Other: # Voids 1 3 1 Weight 46.72 kg Results CBC & Chem 7: 10/13/24 04:08 10/13/24 04:08 Labs: Microbiology - Last 24 Hours (Table) 10/12/24 22:31 Blood Culture - Preliminary Blood
--- NOTE | 2024-10-14 14:31 | P.DS ---
Providers Date of admission: 10/12/24 22:38 Expected date of discharge: 10/14/24 Attending physician: Luisito Azar Consults: 10/13/24 21:16 Consult Physician Routine Consulting Provider: Salazar Shore Consult Reason/Comments: Medical management hx pseudoseizures Do you want consulting provider notified?: Yes Primary care physician: Stated None Hospital Course: Discharge diagnosis 1. Appendicitis Hospital course This is a 18-year-old female who presented to the hospital with complaints of right upper quadrant abdominal pain. Patient reports that she has had pain for about 1 week. She reports that the pain initially started in the right lower quadrant and is now moved up into the right upper quadrant of the abdomen. CT scan abdomen pelvis had reported possible early development of appendicitis with evidence of wall thickening of the appendix and fat stranding. Patient is status post laparoscopic appendectomy for an acute appendicitis. Patient tolerated surgery well. Her pain is controlled. She is tolerating diet. She has been up and ambulating. She is afebrile. She is stable for discharge. Patient will be discharged with antibiotics. Please refer to chart for any further details. Physician Service Developer note has been reviewed by physician. Signing provider agrees with the documented findings, assessment, and plan of care. Patient Condition at Discharge: Stable Plan - Discharge Summary New Discharge Prescriptions: New Docusate [Colace] 100 mg PO BID #30 capsule metroNIDAZOLE [Flagyl] 500 mg PO TID 7 Days #21 tab HYDROcodone/APAP 7.5-325MG [[place] 7.5-325] 1 tab PO Q6HR PRN 3 Days #12 tab PRN Reason: Pain Levofloxacin [Levaquin] 500 mg PO DAILY 7 Days #7 tab Continue Naproxen Sodium 550 mg PO Q8H PRN PRN Reason: Pain Discharge Medication List Naproxen Sodium 550 mg PO Q8H PRN 10/13/24 [History] Docusate [Colace] 100 mg PO BID #30 capsule 10/14/24 [Rx] HYDROcodone/APAP 7.5-325MG [[place] 7.5-325] 1 tab PO Q6HR PRN 3 Days #12 tab 10/14/24 [Rx] Levofloxacin [Levaquin] 500 mg PO DAILY 7 Days #7 tab 10/14/24 [Rx] metroNIDAZOLE [Flagyl] 500 mg PO TID 7 Days #21 tab 10/14/24 [Rx] Follow up Appointment(s)/Referral(s): None,Stated [Primary Care Provider] - 1-2 days Luisito Azar MD [STAFF PHYSICIAN] - 10/25/24 3:20 pm Patient Instructions/Handouts: Seizure/Epilepsy Discharge Instructions & Follow-Up Activity/Diet/Wound Care/Special Instructions: No driving while taking [place] No lifting over 10 pounds You may shower. No soaking or tub baths for 2 weeks Very light activity until you are reevaluated at your follow up appointment with your surgeon Discharge Disposition: HOME SELF-CARE
== END 2024-10-14 09:23 | disposition home or self-care (01) ==
LOC: EC 20:42 → 6NMEDSUR 22:38
PROVIDERS: ADMIT Surgery; ATTEND Surgery
DX: K35.80 Unspecified acute appendicitis (principal); A41.9 Sepsis, unspecified organism; F41.9 Anxiety disorder, unspecified; R56.9 Unspecified convulsions; E87.6 Hypokalemia; E87.20 Acidosis, unspecified; D62 Acute posthemorrhagic anemia; Z87.891 Personal history of nicotine dependence; Z88.1 Allergy status to other antibiotic agents; Z79.899 Other long term (current) drug therapy; Z90.49 Acquired absence of other specified parts of digestive tract; Z83.3 Family history of diabetes mellitus
CPT/HCPCS: 96376 ×3; 96372; 96375 ×2; 96361; 96374; 99285; 36415; 81025 ×2; 88304; 80053 ×2; 82150; 83605; 83690; 85025 ×2; 85610; 85730; 81001; 87040; 80306; 74177; 44970; G0378 ×3; J2250; J0330; J2270 ×2; J1200 ×3; J1630; J1644; J2710; J2405 ×2; J1956; J2003; J1650; J3010; J1171 ×3; J1885 ×2; J2704; Q9967; J1836 ×3; J1596; J2470 ×3

== ENCOUNTER 2024-10-15 14:18 | Emergency (ER) | payer OTHER ==
[2024-10-15] MEDS: SODIUM CHLORIDE 0.9% 1,000 ML IV STA (14:36)
[2024-10-15] MEDS: HYDROmorphone 0.5 MG/0.5 ML SYRINGE IVP STA (14:36)
[2024-10-15 14:55] LABS: Basophils % (A) 0 %; Eosinophils # (A) 0.1 k/uL (0-0.7); Eosinophils % (A) 1 %; HCT 28.7 % (34.0-46.0); HGB 9.2 gm/dL (11.4-16.0); Hypochromasia Slight; Lymphocytes # (A) 0.8 k/uL (1.0-4.8); Lymphocytes % (A) 7 %; MCH 25.4 pg (25.0-35.0); MCHC 32.1 g/dL (31.0-37.0); MCV 79.1 fL (80.0-100.0); Mean Platelet Volume 7.5; Monocytes # (A) 0.5 k/uL (0-1.0); Monocytes % (A) 4 %; Neutrophils % (A) 87 %; Platelet Count 333 k/uL (150-450); RBC 3.63 m/uL (3.80-5.40); RDW 15.7 % (11.5-15.5); WBC 11.4 k/uL (4.0-11.0)
[2024-10-15 15:09] LABS: ALT 18 U/L (4-34); AST 24 U/L (14-36); African American GFR (CKD) >90 (>60 ml/min/1.73 sqM); Albumin 3.1 g/dL (3.5-5.0); Alkaline Phosphatase 58 U/L (38-126); Amylase 30 U/L (30-110); Anion Gap 5 mmol/L; Blood Urea Nitrogen 5 mg/dL (7-17); Carbon Dioxide 22 mmol/L (22-30); Chloride 111 mmol/L (98-107); Glucose 98 mg/dL (74-99); Lipase 40 U/L (23-300); Non-African American GFR(CKD) >90 (>60 ml/min/1.73 sqM); Potassium 3.2 mmol/L (3.5-5.1); Sodium 138 mmol/L (137-145); Total Bilirubin 0.3 mg/dL (0.2-1.3); Total Protein 5.8 g/dL (6.3-8.2)
[2024-10-15] MEDS: POTASSIUM CHLORIDE ER 20 MEQ TAB.ER PO STA (15:36)
--- NOTE | 2024-10-15 15:36 | ED ---
General Adult HPI - General Chief complaint: Abdominal Pain Stated complaint: Abd Pain Time Seen by Provider: 10/15/24 14:25 Source: patient, EMS, RN notes reviewed, old records reviewed Mode of arrival: EMS - History of Present Illness Initial comments: This is a 18-year-old female who presents to the emergency department stating she had an appendectomy 2 days ago and today when she rolled over in bed she felt a pull in mL of her abdomen and she says the pain is much worse. Patient is very histrionic. Patient denies any fever chills. Patient has any vomiting or diarrhea. - Related Data Home Medications Medication Instructions Recorded Confirmed Naproxen Sodium 550 mg PO Q8H PRN 10/13/24 10/13/24 Previous Rx's Medication Instructions Recorded Docusate [Colace] 100 mg PO BID #30 capsule 10/14/24 HYDROcodone/APAP 7.5-325MG [[place] 1 tab PO Q6HR PRN 3 Days #12 tab 10/14/24 7.5-325] Levofloxacin [Levaquin] 500 mg PO DAILY 7 Days #7 tab 10/14/24 metroNIDAZOLE [Flagyl] 500 mg PO TID 7 Days #21 tab 10/14/24 Allergies Allergy/AdvReac Type Severity Reaction Status Date / Time amoxicillin Allergy Anaphylaxis/swelling Verified 10/13/24 08:49 of feet/rash Review of Systems ROS Statement: Those systems with pertinent positive or pertinent negative responses have been documented in the HPI. ROS Other: All systems not noted in ROS Statement are negative. Past Medical History Past Medical History: No Reported History Additional Past Medical History / Comment(s): . pseudoseizure History of Any Multi-Drug Resistant Organisms: None Reported Past Surgical History: Cholecystectomy Past Anesthesia/Blood Transfusion Reactions: No Reported Reaction Past Psychological History: No Psychological Hx Reported Smoking Status: Former smoker Past Alcohol Use History: None Reported Past Drug Use History: Marijuana - Past Family History Mother Family Medical History: No Reported History Father Family Medical History: Diabetes Mellitus General Exam - General Exam Comments Initial Comments: GENERAL: Patient is well-developed and well-nourished. Patient is nontoxic and well- hydrated and is in mild distress. ENT: Neck is soft and supple. No significant lymphadenopathy is noted. Oropharynx is clear. Moist mucous membranes. Neck has full range of motion without eliciting any pain. EYES: The sclera were anicteric and conjunctiva were pink and moist. Extraocular movements were intact and pupils were equal round and reactive to light. Eyelids were unremarkable. PULMONARY: Unlabored respirations. Good breath sounds bilaterally. No audible rales rhonchi or wheezing was noted. CARDIOVASCULAR: There is a regular rate and rhythm without any murmurs gallops or rubs. ABDOMEN: Patient only has tenderness at the incision sites but there is no signs of infection around the incision sites SKIN: Skin is clear with no lesions or rashes and otherwise unremarkable. NEUROLOGIC: Patient is alert and oriented x3. Cranial nerves II through XII are grossly intact. Motor and sensory are also intact. Normal speech, volume and content. Symmetrical smile. MUSCULOSKELETAL: Normal extremities with adequate strength and full range of motion. No lower extremity swelling or edema. No calf tenderness. LYMPHATICS: No significant lymphadenopathy is noted PSYCHIATRIC: Normal psychiatric evaluation. Course Vital Signs 10/15/24 10/15/24 14:22 15:38 Pulse Rate 93 83 Respiratory 15 17 Rate Blood Pressure 127/71 121/63 O2 Sat by Pulse 99 99 Oximetry Medical Decision Making - Medical Decision Making Was pt. sent in by a medical professional or institution (, PA, VIRTUAL REALITY SPECIALIST, urgent care, hospital, or fpc...) When possible be specific @ -No Did you speak to anyone other than the patient for history (EMS, parent, family, police, friend...)? What history was obtained from this source @ -No Did you review nursing and triage notes (agree or disagree)? Why? @ -I reviewed and agree with nursing and triage notes Were old charts reviewed (outside hosp., previous admission, EMS record, old EKG, old radiological studies, urgent care reports/EKG's, fpc records)? Report findings @ -No old charts were reviewed Differential Diagnosis? @ -Differential Abdominal Pain Men: Appendicitis, cholecystitis, diverticulosis, ischemic bowel, pancreatitis, hepatitis, UTI, gastroenteritis, AAA, incarcerated hernia, bowel obstruction, constipation, inflammatory bowel, hepatitis, peptic ulcer disease, splenic infarction, perforated viscus, testicular torsion, this is not meant to be an all-inclusive list EKG interpreted by me (3pts min.). @ -As above X-rays interpreted by me (1pt min.). @ -None done CT interpreted by me (1pt min.). @ -CT scan shows a possible ileus U/S interpreted by me (1pt. min.). @ -None done What testing was considered but not performed or refused? (CT, X-rays, U/S, labs)? Why? @ -None What meds were considered but not given or refused? Why? @ -None Did you discuss the management of the patient with other professionals (professionals i.e. Dr., PA, VIRTUAL REALITY SPECIALIST, lab, RT, psych nurse, social worker clinical, accounts specialist, teacher, protective officer, case work aide)? Give summary @ -Spoke with Dr. Brown he wanted the patient to follow-up with . The same Was smoking cessation discussed for >3mins.? @ -No Was critical care preformed (if so, how long)? @ -No Were there social determinants of health that impacted care today? How? (Homelessness, low income, unemployed, alcoholism, drug addiction, transportation, low edu. Level, literacy, decrease access to med. care, snf, rehab)? @ -No Was there de-escalation of care discussed even if they declined (Discuss DNR or withdrawal of care, Hospice)? DNR status @ -No What co-morbidities impacted this encounter? (DM, HTN, Smoking, COPD, CAD, Cancer, CVA, ARF, Chemo, Hep., AIDS, mental health diagnosis, sleep apnea, morbid obesity)? @ -None Was patient admitted / discharged? Hospital course, mention meds given and route, prescriptions, significant lab abnormalities, going to OR and other per tinent info. @ -Patient had a CAT scan did not show any acute issue other than an ileus. Patient was given some pain medicine while in the emergency department. Patient was very histrionic while in the emergency department Undiagnosed new problem with uncertain prognosis? @ -No Drug Therapy requiring intensive monitoring for toxicity (Heparin, Nitro, Insulin, Cardizem)? @ -No Were any procedures done? @ -No Diagnosis/symptom? @ -Postsurgical pain Acute, or Chronic, or Acute on Chronic? @ -Acute Uncomplicated (without systemic symptoms) or Complicated (systemic symptoms)? @ -Complicated Side effects of treatment? @ -No Exacerbation, Progression, or Severe Exacerbation? @ -No Poses a threat to life or bodily function? How? (Chest pain, USA, PA, pneumonia, PE, COPD, DKA, ARF, appy, cholecystitis, CVA, Diverticulitis, Homicidal, Suicidal, threat to staff... and all critical care pts) @ -No - Lab Data Result diagrams: 10/15/24 14:43 10/15/24 14:43 Lab Results 10/15/24 10/15/24 10/15/24 Range/Units 14:43 14:43 14:43 WBC 11.4 H (4.0-11.0) k/uL RBC 3.63 L (3.80-5.40) m/uL Hgb 9.2 L (11.4-16.0) gm/dL Hct 28.7 L (34.0-46.0) % MCV 79.1 L (80.0-100.0) fL MCH 25.4 (25.0-35.0) pg MCHC 32.1 (31.0-37.0) g/dL RDW 15.7 H (11.5-15.5) % Plt Count 333 (150-450) k/uL MPV 7.5 Neutrophils % 87 % Lymphocytes % 7 % Monocytes % 4 % Eosinophils % 1 % Basophils % 0 % Neutrophils # 10.0 H (1.3-7.7) k/uL Lymphocytes # 0.8 L (1.0-4.8) k/uL Monocytes # 0.5 (0-1.0) k/uL Eosinophils # 0.1 (0-0.7) k/uL Basophils # 0.0 (0-0.2) k/uL Hypochromasia Slight Sodium 138 (137-145) mmol/L Potassium 3.2 L (3.5-5.1) mmol/L Chloride 111 H (98-107) mmol/L Carbon Dioxide 22 (22-30) mmol/L Anion Gap 5 mmol/L BUN 5 L (7-17) mg/dL Creatinine 0.61 (0.52-1.04) mg/dL Est GFR (CKD-EPI)AfAm >90 (>60 ml/min/1.73 sqM) Est GFR (CKD-EPI)NonAf >90 (>60 ml/min/1.73 sqM) Glucose 98 (74-99) mg/dL Plasma Lactic Acid Jamie 1.0 (0.7-2.0) mmol/L Calcium 8.0 L (8.4-10.2) mg/dL Total Bilirubin 0.3 (0.2-1.3) mg/dL AST 24 (14-36) U/L ALT 18 (4-34) U/L Alkaline Phosphatase 58 (38-126) U/L Total Protein 5.8 L (6.3-8.2) g/dL Albumin 3.1 L (3.5-5.0) g/dL Amylase 30 (30-110) U/L Lipase 40 (23-300) U/L Disposition Clinical Impression: Abdominal pain Disposition: HOME SELF-CARE Condition: Good Instructions (If sedation given, give patient instructions): Abdominal Pain (ED) Is patient prescribed a controlled substance at d/c from ED?: No Referrals: None,Stated [Primary Care Provider] - 1-2 days Luisito Azar MD [STAFF PHYSICIAN] - 1-2 days Time of Disposition: 16:31
[2024-10-15 15:38] VITALS: BP 121/63; PULSE 83; RESP 17
--- NOTE | 2024-10-15 16:07 | CT ---
EXAMINATION TYPE: CT abdomen pelvis w con DATE OF EXAM: 10/15/2024 3:53 PM COMPARISON: CT abdomen/pelvis 10/12/2024. CLINICAL INDICATION: Female, 18 years old with history of abdominal pain; Appendectomy x2days ago. In creased abdominal pain following. Hx of cholecystectomy. TECHNIQUE: Axial CT abdomen pelvis w con;Sagittal and coronal reformats were created on a separate w orkstation. Contrast used:80 ml mL of Isovue 300 with IV Contrast, (none if empty) Oral contrast used: without Oral Contrast (none if empty) CT DLP: 597 mGycm, Automated exposure control for dose reduction was used. FINDINGS: LOWER CHEST: Unremarkable ABDOMEN LIVER: Unremarkable GALLBLADDER AND BILE DUCTS: Gallbladder surgically absent. No abnormal biliary ductal dilatation. PANCREAS: Unremarkable. SPLEEN: Unremarkable. ADRENAL GLANDS: Unremarkable. KIDNEYS AND URETERS: No evidence of hydronephrosis or renal calculus. The ureters are unremarkable. PELVIS BLADDER: No evidence for wall thickening or mass given limitations of exam. REPRODUCTIVE: Unremarkable. ABDOMEN & PELVIS STOMACH AND BOWEL: Interval postoperative changes compatible with appendectomy. Numerous fluid-filled small bowel loops which appear nondilated but demonstrate mild wall thickening. Mild lower abdominal /pelvis mesenteric fat stranding/inflammatory changes. Small amount of free fluid along the right par acolic gutter. PERITONEUM/RETROPERITONEUM: No evidence of pneumoperitoneum. VASCULATURE: No evidence of aortic aneurysm. MUSCULOSKELETAL: No acute osseous abnormalities LYMPH NODES: No gross evidence for lymphadenopathy. SOFT TISSUE/ABDOMINAL WALL: Unremarkable IMPRESSION: Interval appendectomy with multiple nondilated fluid-filled small bowel loops, some of which demonstr ate mild wall thickening. Findings are felt to most likely reflect ileus and possible infectious or i nflammatory enteritis. [facility], , 10/15/2024 4:05 PM
== END 2024-10-15 17:19 | disposition home or self-care (01) ==
LOC: EC 14:18
DX: G89.18 Other acute postprocedural pain (principal); R10.9 Unspecified abdominal pain; Z88.0 Allergy status to penicillin; Z87.891 Personal history of nicotine dependence; Z90.49 Acquired absence of other specified parts of digestive tract
CPT/HCPCS: 96374; 96361; 36415; 80053; 82150; 83605; 83690; 85025; 74177; 99285; J1171; Q9967

== ENCOUNTER 2024-11-07 18:47 | Inpatient (IN) | payer OTHER ==
[2024-11-07 19:26] LABS: Basophils # (A) 0.1 k/uL (0-0.2); Basophils % (A) 0 %; Eosinophils # (A) 0.2 k/uL (0-0.7); Eosinophils % (A) 1 %; HCT 35.3 % (34.0-46.0); HGB 11.5 gm/dL (11.4-16.0); Hypochromasia Slight; Lymphocytes # (A) 1.2 k/uL (1.0-4.8); Lymphocytes % (A) 5 %; MCHC 32.7 g/dL (31.0-37.0); MCV 76.4 fL (80.0-100.0); Mean Platelet Volume 7.4; Microcytosis Slight; Monocytes # (A) 1.6 k/uL (0-1.0); Monocytes % (A) 6 %; Neutrophils # (A) 23.5 k/uL (1.3-7.7); Neutrophils % (A) 88 %; Platelet Count 374 k/uL (150-450); RBC 4.62 m/uL (3.80-5.40); RDW 15.5 % (11.5-15.5); WBC 26.7 k/uL (4.0-11.0)
[2024-11-07] MEDS: LORazepam 2 MG/ML INJ IV STA (19:31)
[2024-11-07 19:35] LABS: ALT 13 U/L (4-34); AST 19 U/L (14-36); African American GFR (CKD) >90 (>60 ml/min/1.73 sqM); Alkaline Phosphatase 97 U/L (38-126); Anion Gap 16 mmol/L; Blood Urea Nitrogen 11 mg/dL (7-17); Calcium 9.7 mg/dL (8.4-10.2); Carbon Dioxide 18 mmol/L (22-30); Chloride 106 mmol/L (98-107); Glucose 120 mg/dL (74-99); Lipase 43 U/L (23-300); Magnesium 1.4 mg/dL (1.6-2.3); Non-African American GFR(CKD) >90 (>60 ml/min/1.73 sqM); Potassium 3.4 mmol/L (3.5-5.1); Sodium 140 mmol/L (137-145); Total Bilirubin 0.7 mg/dL (0.2-1.3)
[2024-11-07] MEDS: HYDROmorphone 1 MG/ML 1 ML SYRINGE IVP STA (19:37)
[2024-11-07] MEDS: SODIUM CHLORIDE 0.9% 1,000 ML IV STA (19:41)
[2024-11-07] MEDS: ACETAMINOPHEN TAB 325 MG TAB PO STA (19:41)
[2024-11-07] MEDS: IBUPROFEN 600 MG TAB PO STA (19:42)
[2024-11-07] MEDS: ONDANSETRON 4 MG/2 ML VIAL IVP STA (19:43)
--- NOTE | 2024-11-07 19:47 | ED ---
General Adult HPI - General Chief complaint: Seizure Stated complaint: Seizure Time Seen by Provider: 11/07/24 19:10 Source: patient Mode of arrival: ambulatory Limitations: no limitations - History of Present Illness Initial comments: 18-year-old female presenting with chief complaint of seizure, abdominal pain, and back pain. Patient has history of seizure disorder, her boyfriend states that she had 3 seizures earlier today. She has been seen here in the past for seizures. Patient had an appendectomy on 10/13. States that since then she has been having abdominal pain. She is also complaining of lower back pain which has been a longstanding issue. Denies any injury or trauma. No loss of bowel or bladder control or saddle paresthesia. Admits to nausea and vomiting. No diarrhea. No fever. - Related Data Home Medications Medication Instructions Recorded Confirmed Naproxen Sodium 550 mg PO Q8H PRN 10/13/24 10/13/24 Previous Rx's Medication Instructions Recorded Docusate [Colace] 100 mg PO BID #30 capsule 10/14/24 HYDROcodone/APAP 7.5-325MG [[place] 1 tab PO Q6HR PRN 3 Days #12 tab 10/14/24 7.5-325] Levofloxacin [Levaquin] 500 mg PO DAILY 7 Days #7 tab 10/14/24 metroNIDAZOLE [Flagyl] 500 mg PO TID 7 Days #21 tab 10/14/24 Allergies Allergy/AdvReac Type Severity Reaction Status Date / Time amoxicillin Allergy Anaphylaxis/swelling Verified 11/07/24 19:00 of feet/rash Review of Systems ROS Statement: Those systems with pertinent positive or pertinent negative responses have been documented in the HPI. ROS Other: All systems not noted in ROS Statement are negative. Past Medical History Past Medical History: No Reported History Additional Past Medical History / Comment(s): . pseudoseizure History of Any Multi-Drug Resistant Organisms: None Reported Past Surgical History: Cholecystectomy Past Anesthesia/Blood Transfusion Reactions: No Reported Reaction Past Psychological History: No Psychological Hx Reported Smoking Status: Former smoker Past Alcohol Use History: None Reported Past Drug Use History: Marijuana - Past Family History Mother Family Medical History: No Reported History Father Family Medical History: Diabetes Mellitus General Exam Limitations: no limitations General appearance: alert, in no apparent distress Head exam: Present: atraumatic, normocephalic, normal inspection Eye exam: Present: normal appearance, EOMI Neck exam: Present: normal inspection. Absent: meningismus Respiratory exam: Present: normal lung sounds bilaterally. Absent: respiratory distress, wheezes, rales, rhonchi, stridor Cardiovascular Exam: Present: normal rhythm, tachycardia, normal heart sounds. Absent: systolic murmur, diastolic murmur, rubs, gallop, clicks Extremities exam: Present: normal inspection Back exam: Present: normal inspection, tenderness Neurological exam: Present: alert, oriented X3 Psychiatric exam: Present: agitated Skin exam: Present: normal color Course Vital Signs 11/07/24 11/07/24 11/07/24 18:55 19:45 21:13 Temperature 100.3 F H 98.2 F Pulse Rate 140 H 138 H 112 H Respiratory 20 16 18 Rate Blood Pressure 98/68 119/77 107/55 O2 Sat by Pulse 97 99 99 Oximetry 11/07/24 23:05 Temperature Pulse Rate 105 H Respiratory 16 Rate Blood Pressure 106/68 O2 Sat by Pulse 98 Oximetry Medical Decision Making - Medical Decision Making Was pt. sent in by a medical professional or institution (, PA, ATTENDANCE SECRETARY, urgent care, hospital, or [facility]...) When possible be specific @ -No Did you speak to anyone other than the patient for history (EMS, parent, family, police, friend...)? What history was obtained from this source @ -Boyfriend Did you review nursing and triage notes (agree or disagree)? Why? @ -I reviewed and agree with nursing and triage notes Were old charts reviewed (outside hosp., previous admission, EMS record, old EKG, old radiological studies, urgent care reports/EKG's, [facility] records)? Report findings @ -No old charts were reviewed Differential Diagnosis (chest pain, altered mental status, abdominal pain women, abdominal pain men, vaginal bleeding, weakness, fever, dyspnea, syncope, headache, dizziness, GI bleed, back pain, seizure, CVA, palpatations, mental health, musculoskeletal)? @ -MDM Differential Abdominal Pain Women: Appendicitis, Cholecystitis, diverticulosis, ischemic bowel, pancreatitis, hepatitis, UTI, gastroenteritis, AAA, incarcerated hernia, bowel obstruction, constipation, inflammatory bowel, hepatitis, peptic ulcer disease, splenic infarction, perforated viscus, vulvitis, ovarian torsion, PID, kidney stone, placenta abruption... This is not meant to be an all-inclusive list EKG interpreted by me (3pts min.). @ -EKG shows sinus tachycardia ventricular rate 124. HI interval 137. QRS 98. QT 406. QTc 480. X-rays interpreted by me (1pt min.). @ -None done CT interpreted by me (1pt min.). @ -CT shows findings concerning for development of right-sided pyelonephritis secondary to an ascending UTI. Correlate with UA. Loops of dilated fluid- filled small bowel are seen with no discrete transition point at this time. Findings likely related to developing ileus. Close clinical follow-up recommended. U/S interpreted by me (1pt. min.). @ -None done What testing was considered but not performed or refused? (CT, X-rays, U/S, labs)? Why? @ -None What meds were considered but not given or refused? Why? @ -None Did you discuss the management of the patient with other professionals (professionals i.e. , PA, ATTENDANCE SECRETARY, lab, RT, psych nurse, social service agency director, childcare teacher, teacher, strategic debriefing officer, major case detective)? Give summary @ -Spoke with sound physician on-call accepts admission Was smoking cessation discussed for >3mins.? @ -No Was critical care preformed (if so, how long)? @ -No Were there social determinants of health that impacted care today? How? (Homelessness, low income, unemployed, alcoholism, drug addiction, transportation, low edu. Level, literacy, decrease access to med. care, halfway, rehab)? @ -No Was there de-escalation of care discussed even if they declined (Discuss DNR or withdrawal of care, Hospice)? DNR status @ -No What co-morbidities impacted this encounter? (DM, HTN, Smoking, COPD, CAD, Cancer, CVA, ARF, Chemo, Hep., AIDS, mental health diagnosis, sleep apnea, morbid obesity)? @ -Pseudoseizures Was patient admitted / discharged? Hospital course, mention meds given and route, prescriptions, significant lab abnormalities, going to OR and other pertinent info. @ -18-year-old female presenting with chief complaint of abdominal pain and back pain. Patient also has history of pseudoseizures, boyfriend witnessed 3 today. History and physical examination are conducted. WBC 26.7. Lactic acid 2.4. Patient is febrile and tachycardic. Urine shows evidence of infection with negative hCG. Patient treated for sepsis with 1.5 L fluid bolus and maintenance rate of 130 mL/h, she is given [address] positive for right-sided pyelonephritis. There also may be developing ileus. Urine toxicol ogy was unfortunately obtained after the patient received medication here in the ER, may be falsely positive for opiates and benzodiazepines, also positive for marijuana. Patient will be admitted. She is agreeable with this plan. I discussed this case with my attending Dr. Michel Undiagnosed new problem with uncertain prognosis? @ -No Drug Therapy requiring intensive monitoring for toxicity (Heparin, Nitro, Insulin, Cardizem)? @ -No Were any procedures done? @ -No Diagnosis/symptom? @ -Pyelonephritis, sepsis Acute, or Chronic, or Acute on Chronic? @ -Acute Uncomplicated (without systemic symptoms) or Complicated (systemic symptoms)? @ -Complicated Side effects of treatment? @ -No Exacerbation, Progression, or Severe Exacerbation? @ -No Poses a threat to life or bodily function? How? (Chest pain, [place], [place], pneumonia, PE, COPD, DKA, ARF, appy, cholecystitis, CVA, Diverticulitis, Homicidal, Suicidal, threat to staff... and all critical care pts) @ -Yes - Lab Data Result diagrams: 11/07/24 19:10 11/07/24 19:10 Lab Results 11/07/24 11/07/24 11/07/24 Range/Units 19:10 19:10 19:10 WBC 26.7 H (4.0-11.0) k/uL RBC 4.62 (3.80-5.40) m/uL Hgb 11.5 (11.4-16.0) gm/dL Hct 35.3 (34.0-46.0) % MCV 76.4 L (80.0-100.0) fL MCH 25.0 (25.0-35.0) pg MCHC 32.7 (31.0-37.0) g/dL RDW 15.5 (11.5-15.5) % Plt Count 374 (150-450) k/uL MPV 7.4 Neutrophils % 88 % Lymphocytes % 5 % Monocytes % 6 % Eosinophils % 1 % Basophils % 0 % Neutrophils # 23.5 H (1.3-7.7) k/uL Lymphocytes # 1.2 (1.0-4.8) k/uL Monocytes # 1.6 H (0-1.0) k/uL Eosinophils # 0.2 (0-0.7) k/uL Basophils # 0.1 (0-0.2) k/uL Hypochromasia Slight Microcytosis Slight Sodium 140 (137-145) mmol/L Potassium 3.4 L (3.5-5.1) mmol/L Chloride 106 (98-107) mmol/L Carbon Dioxide 18 L (22-30) mmol/L Anion Gap 16 mmol/L BUN 11 (7-17) mg/dL Creatinine 0.88 (0.52-1.04) mg/dL Est GFR (CKD-EPI)AfAm >90 (>60 ml/min/1.73 sqM) Est GFR (CKD-EPI)NonAf >90 (>60 ml/min/1.73 sqM) Glucose 120 H (74-99) mg/dL Lactic Ac Sepsis Rflx Plasma Lactic Acid Jamie 2.4 H* (0.7-2.0) mmol/L Calcium 9.7 (8.4-10.2) mg/dL Magnesium 1.4 L (1.6-2.3) mg/dL Total Bilirubin 0.7 (0.2-1.3) mg/dL AST 19 (14-36) U/L ALT 13 (4-34) U/L Alkaline Phosphatase 97 (38-126) U/L Total Protein 9.0 H (6.3-8.2) g/dL Albumin 5.0 (3.5-5.0) g/dL Lipase 43 (23-300) U/L Urine Color Urine Appearance (Clear) Urine pH (5.0-8.0) Ur Specific [place] (1.001-1.035) Urine Protein (Negative) Urine Glucose (UA) (Negative) Urine Ketones (Negative) Urine Blood (Negative) Urine Nitrite (Negative) Urine Bilirubin (Negative) Urine Urobilinogen (<2.0) mg/dL Ur Leukocyte Esterase (Negative) Urine RBC (0-5) /hpf Urine WBC (0-5) /hpf Urine WBC Clumps (None) /hpf Ur Squamous Epith Cells (0-4) /hpf Amorphous Sediment (None) /hpf Urine Bacteria (None) /hpf Urine Mucus (None) /hpf Urine HCG, Qual (Not Detectd) Urine Opiates Screen (NotDetected) Ur Oxycodone Screen (NotDetected) Urine Methadone Screen (NotDetected) Ur Barbiturates Screen (NotDetected) U Tricyclic Antidepress (NotDetected) Ur Phencyclidine Scrn (NotDetected) Ur Amphetamines Screen (NotDetected) U Methamphetamines Scrn (NotDetected) U Benzodiazepines Scrn (NotDetected) Urine Cocaine Screen (NotDetected) U Marijuana (THC) Screen (NotDetected) Influenza Type A (PCR) (Not Detectd) Influenza Type B (PCR) (Not Detectd) RSV (PCR) (Not Detectd) SARS-CoV-2 (PCR) (Not Detectd) 11/07/24 11/07/24 11/07/24 Range/Units 19:46 20:05 20:05 WBC (4.0-11.0) k/uL RBC (3.80-5.40) m/uL Hgb (11.4-16.0) gm/dL Hct (34.0-46.0) % MCV (80.0-100.0) fL MCH (25.0-35.0) pg MCHC (31.0-37.0) g/dL RDW (11.5-15.5) % Plt Count (150-450) k/uL MPV Neutrophils % % Lymphocytes % % Monocytes % % Eosinophils % % Basophils % % Neutrophils # (1.3-7.7) k/uL Lymphocytes # (1.0-4.8) k/uL Monocytes # (0-1.0) k/uL Eosinophils # (0-0.7) k/uL Basophils # (0-0.2) k/uL Hypochromasia Microcytosis Sodium (137-145) mmol/L Potassium (3.5-5.1) mmol/L Chloride (98-107) mmol/L Carbon Dioxide (22-30) mmol/L Anion Gap mmol/L BUN (7-17) mg/dL Creatinine (0.52-1.04) mg/dL Est GFR (CKD-EPI)AfAm (>60 ml/min/1.73 sqM) Est GFR (CKD-EPI)NonAf (>60 ml/min/1.73 sqM) Glucose (74-99) mg/dL Lactic Ac Sepsis Rflx Y Plasma Lactic Acid Jamie (0.7-2.0) mmol/L Calcium (8.4-10.2) mg/dL Magnesium (1.6-2.3) mg/dL Total Bilirubin (0.2-1.3) mg/dL AST (14-36) U/L ALT (4-34) U/L Alkaline Phosphatase (38-126) U/L Total Protein (6.3-8.2) g/dL Albumin (3.5-5.0) g/dL Lipase (23-300) U/L Urine Color Yellow Urine Appearance Turbid H (Clear) Urine pH 6.5 (5.0-8.0) Ur Specific [place] 1.021 (1.001-1.035) Urine Protein 2+ H (Negative) Urine Glucose (UA) Negative (Negative) Urine Ketones Negative (Negative) Urine Blood Small H (Negative) Urine Nitrite Positive H (Negative) Urine Bilirubin Negative (Negative) Urine Urobilinogen <2.0 (<2.0) mg/dL Ur Leukocyte Esterase Large H (Negative) Urine RBC 18 H (0-5) /hpf Urine WBC >182 H (0-5) /hpf Urine WBC Clumps Occasional H (None) /hpf Ur Squamous Epith Cells 18 H (0-4) /hpf Amorphous Sediment Rare H (None) /hpf Urine Bacteria Rare H (None) /hpf Urine Mucus Many H (None) /hpf Urine HCG, Qual Not Detected (Not Detectd) Urine Opiates Screen Detected H (NotDetected) Ur Oxycodone Screen Not Detected (NotDetected) Urine Methadone Screen Not Detected (NotDetected) Ur Barbiturates Screen Not Detected (NotDetected) U Tricyclic Antidepress Not Detected (NotDetected) Ur Phencyclidine Scrn Not Detected (NotDetected) Ur Amphetamines Screen Not Detected (NotDetected) U Methamphetamines Scrn Not Detected (NotDetected) U Benzodiazepines Scrn Detected H (NotDetected) Urine Cocaine Screen Not Detected (NotDetected) U Marijuana (THC) Screen Detected H (NotDetected) Influenza Type A (PCR) (Not Detectd) Influenza Type B (PCR) (Not Detectd) RSV (PCR) (Not Detectd) SARS-CoV-2 (PCR) (Not Detectd) 11/07/24 Range/Units 21:05 WBC (4.0-11.0) k/uL RBC (3.80-5.40) m/uL Hgb (11.4-16.0) gm/dL Hct (34.0-46.0) % MCV (80.0-100.0) fL MCH (25.0-35.0) pg MCHC (31.0-37.0) g/dL RDW (11.5-15.5) % Plt Count (150-450) k/uL MPV Neutrophils % % Lymphocytes % % Monocytes % % Eosinophils % % Basophils % % Neutrophils # (1.3-7.7) k/uL Lymphocytes # (1.0-4.8) k/uL Monocytes # (0-1.0) k/uL Eosinophils # (0-0.7) k/uL Basophils # (0-0.2) k/uL Hypochromasia Microcytosis Sodium (137-145) mmol/L Potassium (3.5-5.1) mmol/L Chloride (98-107) mmol/L Carbon Dioxide (22-30) mmol/L Anion Gap mmol/L BUN (7-17) mg/dL Creatinine (0.52-1.04) mg/dL Est GFR (CKD-EPI)AfAm (>60 ml/min/1.73 sqM) Est GFR (CKD-EPI)NonAf (>60 ml/min/1.73 sqM) Glucose (74-99) mg/dL Lactic Ac Sepsis Rflx Plasma Lactic Acid Jamie (0.7-2.0) mmol/L Calcium (8.4-10.2) mg/dL Magnesium (1.6-2.3) mg/dL Total Bilirubin (0.2-1.3) mg/dL AST (14-36) U/L ALT (4-34) U/L Alkaline Phosphatase (38-126) U/L Total Protein (6.3-8.2) g/dL Albumin (3.5-5.0) g/dL Lipase (23-300) U/L Urine Color Urine Appearance (Clear) Urine pH (5.0-8.0) Ur Specific [place] (1.001-1.035) Urine Protein (Negative) Urine Glucose (UA) (Negative) Urine Ketones (Negative) Urine Blood (Negative) Urine Nitrite (Negative) Urine Bilirubin (Negative) Urine Urobilinogen (<2.0) mg/dL Ur Leukocyte Esterase (Negative) Urine RBC (0-5) /hpf Urine WBC (0-5) /hpf Urine WBC Clumps (None) /hpf Ur Squamous Epith Cells (0-4) /hpf Amorphous Sediment (None) /hpf Urine Bacteria (None) /hpf Urine Mucus (None) /hpf Urine HCG, Qual (Not Detectd) Urine Opiates Screen (NotDetected) Ur Oxycodone Screen (NotDetected) Urine Methadone Screen (NotDetected) Ur Barbiturates Screen (NotDetected) U Tricyclic Antidepress (NotDetected) Ur Phencyclidine Scrn (NotDetected) Ur Amphetamines Screen (NotDetected) U Methamphetamines Scrn (NotDetected) U Benzodiazepines Scrn (NotDetected) Urine Cocaine Screen (NotDetected) U Marijuana (THC) Screen (NotDetected) Influenza Type A (PCR) Not Detected (Not Detectd) Influenza Type B (PCR) Not Detected (Not Detectd) RSV (PCR) Not Detected (Not Detectd) SARS-CoV-2 (PCR) Not Detected (Not Detectd) Disposition Clinical Impression: Pyelonephritis, Sepsis Disposition: ADMITTED IP TO THIS HOSP Condition: Fair Time of Disposition: 21:28
[2024-11-07 20:22] LABS: Amorphous Sediment,Urine Rare /hpf; Appearance,Urine Turbid (Clear); Bacteria,Urine Rare /hpf; Bilirubin,Urine Negative (Negative); Blood,Urine Small (Negative); Color,Urine Yellow; Glucose,Urine (UA) Negative (Negative); Ketones,Urine Negative (Negative); Leukocyte Esterase,Urine Large (Negative); Mucus,Urine Many /hpf; Nitrite,Urine Positive (Negative); PH, Urine 6.5 (5.0-8.0); Protein,Urine 2+ (Negative); RBC,Urine 18 /hpf (0-5); Specific Gravity,Urine 1.021 (1.001-1.035); Squamous Epithelial Cell,Urine 18 /hpf (0-4); Urobilinogen,Urine <2.0 mg/dL (<2.0); WBC,Urine >182 /hpf (0-5)
[2024-11-07 20:28] LABS: Amphetamine Screen,Urine Not Detected (NotDetected); Barbiturate Screen,Urine Not Detected (NotDetected); Benzodiazepines Screen,Urine Detected (NotDetected); Cocaine Screen,Urine Not Detected (NotDetected); Methadone Screen, Urine Not Detected (NotDetected); Opiate Screen,Urine Detected (NotDetected); Oxycodone Screen, Urine Not Detected (NotDetected); Phencyclidine Screen,Urine Not Detected (NotDetected); Tricyclic Antidepressant,Urine Not Detected (NotDetected); Urn Cannabinoid Scrn Detected (NotDetected)
[2024-11-07] MEDS: MAGNESIUM OXIDE 400 MG TAB PO STA (20:59)
[2024-11-07] MEDS: cefTRIAXone IN SWFI 1,000 MG/10 ML SYRINGE IVP STA (20:59)
[2024-11-07] MEDS: SODIUM CHLORIDE 0.9% 500 ML 500 ML IV ONE (20:59)
[2024-11-07] MEDS: SODIUM CHLORIDE 0.9% 1,000 ML IV SCH (21:03)
--- NOTE | 2024-11-07 21:08 | CT ---
INDICATION: Patient age:Female; 18 years old; Reason for study: abdominal pain; PHH. COMPARISON: CT abdomen/pelvis 10/15/2024. TECHNIQUE: Standard CT of the abdomen and pelvis following the administration of 80 cc of Isovue 30 0 IV contrast material. Coronal and sagittal reformats were performed. One or more CT dose reduction strategies were utilized during this examination. Total DLP administered was 530.5 mGycm. FINDINGS: LOWER CHEST: Unremarkable ABDOMEN LIVER: Unremarkable. GALLBLADDER AND BILE DUCTS: The gallbladder is surgically absent. PANCREAS: Unremarkable. SPLEEN: Unremarkable. ADRENAL GLANDS: Unremarkable. KIDNEYS AND URETERS: There are linear areas of hypodensity within the right kidney. No evidence of hy dronephrosis or renal calculus. The ureters are unremarkable. PELVIS URINARY BLADDER: Incompletely distended and not visualized REPRODUCTIVE: Fluid and thickening of the endometrial cavity which is likely related to patient's men struation. ABDOMEN & PELVIS STOMACH AND BOWEL: Stomach is grossly unremarkable. There are loops of fluid-filled small bowel is di lated up to 3.4 cm. There is no discrete transition point appreciated. The large bowel is of normal c aliber. PERITONEUM: No evidence of pneumoperitoneum or free fluid. VASCULATURE: No aneurysmal changes MUSCULOSKELETAL: No acute osseous abnormalities. LYMPH NODES: Unremarkable. SOFT TISSUE/ABDOMINAL WALL: Unremarkable IMPRESSION: 1. Findings are concerning for development of right-sided pyelonephritis secondary to an ascending U TI. Correlate with urinalysis. 2. Loops of dilated fluid-filled small bowel are seen with no discrete transition point at this time. Findings likely related to developing ileus. Close clinical follow up recommended. [facility], , 11/07/2024 9:05 PM
[2024-11-07] MEDS ORDERED: NALOXONE 0.4 MG/ML 1 ML VIAL IV PRN (21:43)
[2024-11-07] MEDS: KETOROLAC 15 MG/ML 1 ML VIAL IVP PRN (23:08)
[2024-11-07] MEDS: MORPHINE SULFATE 4 MG/ML SYRINGE IV PRN (23:08)
[2024-11-08] MEDS: ACETAMINOPHEN TAB 325 MG TAB PO PRN (00:29)
--- NOTE | 2024-11-08 01:07 | P.HPIM ---
History of Present Illness H&P Date: 11/07/24 Chief Complaint: Seizure Patient is a 18-year-old female with past medical history of pseudo-seizures presented to the emergency department with chief complaint of seizure, abdominal pain, and back pain. Her boyfriend states that she had 3 seizures earlier today. Patient had a stress-induced seizure episode in early 2023 when she was with her youngest son. Patient was not prescribed with any seizure medications. Patient had an appendectomy on 10/13/2024, and since then has been having periumbilical abdominal pain. Patient reports periumbilical pain that is tight/squeezing in sensation that comes and goes. Patient has tried naproxen earlier which did not help as much. Patient also has a chronic history of low back pain. Patient reports a paraspinal back pain, largely on the R-side, that is sharp stabbing and would radiate toward her neck. Denies any recent injury or trauma. Patient endorses fever, chills, foul smell in her urine. Denies chest pain, shortness of breath, nausea, vomiting, diarrhea, constipation, urinary or bowel incontinence, dysuria. ED documentation reviewed. In the ED patient was treated with Dilaudid 1 mg IV x 1, one and half bolus of normal saline, Tylenol 650 mg p.o. x 1, ibuprofen 600 mg p.o. x 1, Zofran 4 mg IV x 1, Ativan 1 mg IV x 1, Rocephin 1000 mg IV x 1, magnesium oxide 400 mg p.o. x 1 Vitals on admission temperature 100.3, pulse rate 140, respiratory rate 20, blood pressure 98/68, O2 sat 97 on room air EKG independently interpreted as sinus tachycardia at [address]-T wave changes noted with QTc 480 ms with good R-wave progression. CT scanning of abdomen and pelvis shows findings concerning for development of right-sided pyelonephritis secondary to an ascending UTI. Correlate with urin alysis. Also shows loops of dilated fluid-filled small bowel are seen with no discrete transition point at this time. Findings likely related to developing ileus. Close clinical follow-up recommended. Labs on admission show WBC 26.7, hemoglobin 11.5, hematocrit 35.3, platelet 374, sodium 140, potassium 3.4, chloride 106, carbon dioxide 18, BUN 11, creatinine 0.88, glucose 120, lactic acid 2.4, magnesium 1.4, negative for urine hCG UA shows 2+ protein, small amount of blood, positive nitrite, large leukocyte esterase Review of systems: Pertinent positives and negatives as discussed in HPI, a complete review of systems was performed and all other systems are negative. PMH: Seizure disorder PSH: Cholecystectomy FMH: Father has a history of diabetes mellitus Allergies: Amoxicillin Social history: Tobacco: Former smoker Alcohol: None reported Recreational drugs: Marijuana Travel: No recent travel history Sick contacts: No recent sick contact Physical examination: Vital signs reviewed General: nontoxic, no distress, appears at stated age Derm: warm, dry, intact Head: atraumatic, normocephalic, symmetric Eyes: EOMI, anicteric sclera Mouth: no lip lesion, mucus membranes moist Cardiovascular: S1 S2 reg, no murmur Lungs: CTA bilateral, no rhonchi, no rales, no accessory muscle use Abdominal: soft, periumbilical abdominal tenderness to palpation, nondistended, no rebound tenderness, laproscopic incisions noted with overlying dressing with approximated skin, no surrounding skin abnormalities noted Musculoskeletal: Right-sided CVA tenderness Extremities: No cyanosis, clubbing, or pedal edema. Neuro: Alert, Oriented, Gross neurological examination did not reveal any focal deficits. Cranial nerves II to XII grossly intact. Bilateral upper and lower extremity muscle strength intact 5 out of 5. Bilateral upper and lower extremity sensation intact. Psych: well appearing, appropriate affect Assessment/Plan: Patient is a 18-year-old female with past medical history of seizure disorder presented to the emergency department with chief complaint of seizure, abdominal pain, pain back pain. Patient will be admitted to inpatient medicine service. Active: #. Sepsis secondary to Urinary tract infection/pyelonephritis UA showed 2+ protein, positive nitrites and large leukocyte esterase Elevated WBC of 26.7 CT scan of abdomen pelvis showed findings concerning for right-sided pyelonephritis secondary to an ascending UTI. C/w Rocephin 1 g IV qd Continue normal saline at 130 cc an hour As needed Tylenol 650 mg F/u urine and blood cultures #. Ileus CT scan of abdomen pelvis showed loops of dilated fluid-filled small bowel with no discrete transition point at this time IV fluids at 130 cc an hour #. Lactic acidosis, resolved #. Hypomagnesemia Order Magnesium sulfate 3 g IV total #. Hypokalemia, likely secondary to hypomagnesemia Replace and monitor for resolution #. Prolonged QTc interval Cardiac monitoring Replace magnesium Avoid further QT prolonging agents F: No restrictions E: Replete as needed N: Regular diet A: Ambulatory DVT prophylaxis: Lovenox 40 mg subcu daily The patient is admitted with an anticipated more than 2 midnight stay for evaluation of UTI/pyelonephritis CODE STATUS: Full code Discussed with: Patient and family Anticipated discharge place: Home Past Medical History Past Medical History: No Reported History Additional Past Medical History / Comment(s): . pseudoseizure History of Any Multi-Drug Resistant Organisms: None Reported Past Surgical History: Cholecystectomy Past Anesthesia/Blood Transfusion Reactions: No Reported Reaction Past Psychological History: No Psychological Hx Reported Smoking Status: Former smoker Past Alcohol Use History: None Reported Past Drug Use History: Marijuana - Past Family History Mother Family Medical History: No Reported History Father Family Medical History: Diabetes Mellitus Medications and Allergies Home Medications Medication Instructions Recorded Confirmed Type Naproxen Sodium 550 mg PO Q8H PRN 10/13/24 10/13/24 History Docusate [Colace] 100 mg PO BID #30 capsule 10/14/24 Rx HYDROcodone/APAP 7.5-325MG [[place] 1 tab PO Q6HR PRN 3 Days #12 tab 10/14/24 Rx 7.5-325] Levofloxacin [Levaquin] 500 mg PO DAILY 7 Days #7 tab 10/14/24 Rx metroNIDAZOLE [Flagyl] 500 mg PO TID 7 Days #21 tab 10/14/24 Rx Allergies Allergy/AdvReac Type Severity Reaction Status Date / Time amoxicillin Allergy Anaphylaxis/swelling Verified 11/07/24 19:00 of feet/rash Physical Exam Vitals: Vital Signs Temp Pulse Resp BP Pulse Ox 11/07/24 21:13 98.2 F 112 H 18 107/55 99 11/07/24 19:45 138 H 16 119/77 99 11/07/24 18:55 100.3 F H 140 H 20 98/68 97 Intake and Output 11/07/24 11/07/24 11/07/24 06:59 14:59 22:59 Other: Weight 49.895 kg Results CBC & Chem 7: 11/07/24 19:10 11/07/24 19:10 Labs: Abnormal Lab Results - Last 24 Hours (Table) 11/07/24 11/07/24 11/07/24 Range/Units 19:10 19:10 19:10 WBC 26.7 H (4.0-11.0) k/uL MCV 76.4 L (80.0-100.0) fL Neutrophils # 23.5 H (1.3-7.7) k/uL Monocytes # 1.6 H (0-1.0) k/uL Potassium 3.4 L (3.5-5.1) mmol/L Carbon Dioxide 18 L (22-30) mmol/L Glucose 120 H (74-99) mg/dL Plasma Lactic Acid Jamie 2.4 H* (0.7-2.0) mmol/L Magnesium 1.4 L (1.6-2.3) mg/dL Total Protein 9.0 H (6.3-8.2) g/dL Urine Appearance (Clear) Urine Protein (Negative) Urine Blood (Negative) Urine Nitrite (Negative) Ur Leukocyte Esterase (Negative) Urine RBC (0-5) /hpf Urine WBC (0-5) /hpf Urine WBC Clumps (None) /hpf Ur Squamous Epith Cells (0-4) /hpf Amorphous Sediment (None) /hpf Urine Bacteria (None) /hpf Urine Mucus (None) /hpf Urine Opiates Screen (NotDetected) U Benzodiazepines Scrn (NotDetected) U Marijuana (THC) Screen (NotDetected) 11/07/24 Range/Units 20:05 WBC (4.0-11.0) k/uL MCV (80.0-100.0) fL Neutrophils # (1.3-7.7) k/uL Monocytes # (0-1.0) k/uL Potassium (3.5-5.1) mmol/L Carbon Dioxide (22-30) mmol/L Glucose (74-99) mg/dL Plasma Lactic Acid Jamie (0.7-2.0) mmol/L Magnesium (1.6-2.3) mg/dL Total Protein (6.3-8.2) g/dL Urine Appearance Turbid H (Clear) Urine Protein 2+ H (Negative) Urine Blood Small H (Negative) Urine Nitrite Positive H (Negative) Ur Leukocyte Esterase Large H (Negative) Urine RBC 18 H (0-5) /hpf Urine WBC >182 H (0-5) /hpf Urine WBC Clumps Occasional H (None) /hpf Ur Squamous Epith Cells 18 H (0-4) /hpf Amorphous Sediment Rare H (None) /hpf Urine Bacteria Rare H (None) /hpf Urine Mucus Many H (None) /hpf Urine Opiates Screen Detected H (NotDetected) U Benzodiazepines Scrn Detected H (NotDetected) U Marijuana (THC) Screen Detected H (NotDetected)
[2024-11-08] MEDS: MAGNESIUM SULFATE-D5W PMX 1 GM in DEXTROSE/WATER 1 100ML.BAG IVPB SCH (04:00)
[2024-11-08] MEDS: ENOXAPARIN 40 MG/0.4 ML SYRINGE SQ SCH (09:15)
[2024-11-08 09:59] LABS: Hypochromasia Slight; MCH 25.4 pg (25.0-35.0); MCHC 32.5 g/dL (31.0-37.0); MCV 78.3 fL (80.0-100.0); Mean Platelet Volume 8.7; Platelet Count 259 k/uL (150-450); RBC 3.58 m/uL (3.80-5.40); RDW 15.7 % (11.5-15.5); WBC 20.9 k/uL (4.0-11.0)
[2024-11-08 10:00] LABS: HGB 9.1 gm/dL (11.4-16.0)
[2024-11-08 10:05] LABS: ALT 78 U/L (4-34); AST 100 U/L (14-36); African American GFR (CKD) >90 (>60 ml/min/1.73 sqM); Albumin 3.3 g/dL (3.5-5.0); Alkaline Phosphatase 85 U/L (38-126); Anion Gap 9 mmol/L; Blood Urea Nitrogen 9 mg/dL (7-17); Calcium 8.3 mg/dL (8.4-10.2); Carbon Dioxide 19 mmol/L (22-30); Chloride 109 mmol/L (98-107); Glucose 91 mg/dL (74-99); Magnesium 2.3 mg/dL (1.6-2.3); Non-African American GFR(CKD) >90 (>60 ml/min/1.73 sqM); Potassium 3.6 mmol/L (3.5-5.1); Sodium 137 mmol/L (137-145); Total Bilirubin 0.4 mg/dL (0.2-1.3); Total Protein 6.2 g/dL (6.3-8.2)
--- NOTE | 2024-11-08 11:01 | P.GSCN ---
History of Present Illness Consult date: 11/08/24 History of present illness: CHIEF COMPLAINT: Seizure and abdominal pain HISTORY OF PRESENT ILLNESS: This is a 18-year-old female who presented with seizure, abdominal pain and back pain. Per chart patient's boyfriend had reported that she had 3 seizures yesterday. Patient also complaining of right flank and back pain. As well as suprapubic pain. She has been having fevers. She denies any burning with urination. She has been tachycardic. She did have a few episodes of vomiting yesterday that has now resolved. She reports having regular bowel movements. She is status post laparoscopic appendectomy on October 13, [address] Azar. Patient had a CT scan showing evidence of right-sided pyelonephritis as well as dilated small bowel loops correlate for ileus. Patient started on antibiotics. Surgical service was consulted due to recent appendectomy. PAST MEDICAL HISTORY: Pseudoseizure PAST SURGICAL HISTORY: Appendectomy and cholecystectomy MEDICATIONS: See below ALLERGIES: See below SOCIAL HISTORY: No illicit drug use. REVIEW OF SYSTEMS: CONSTITUTIONAL: Denies fever or chills. HEENT: Denies blurred vision, vision changes, or eye pain. Denies hemoptysis CARDIOVASCULAR: Denies chest pain or pressure. RESPIRATORY: No shortness of breath. GASTROINTESTINAL: See HPI for pertinent findings HEMATOLOGIC: Denies bleeding disorders. GENITOURINARY: Denies any blood in urine or increased urinary frequency. SKIN: Denies pruitis. Denies rash. PHYSICAL EXAM: VITAL SIGNS: Reviewed GENERAL: Well-developed in no acute distress. HEENT: No sclera icterus. Extraocular movements grossly intact. Moist buccal mucosa. Head is atraumatic, normocephalic. No nasal drainage. ABDOMEN: Soft. Nondistended. Incision sites clean dry and intact. Patient has tenderness with palpation to the right flank and suprapubic area NEUROLOGIC: Alert and oriented. Cranial nerves II through XII grossly intact. LABORATORY DATA: WBC down from 26.7-20.9 Hgb 11.5 down to 9.1 platelets 259 Sodium 137 potassium 3.6 creatinine 0.71 Lactic acid 2.4 down to 1.2 Urinalysis with evidence of infection Drug screen positive for opiates, benzodiazepine and marijuana IMAGING: CT scan abdomen pelvis reports findings are concerning for development of right- sided pyelonephritis secondary to an ascending UTI. Loops of dilated fluid- filled small bowel are seen with no discrete transition point at this time findings are likely related to developing ileus. ASSESSMENT: 1. Right sided pyelonephritis 2. Status post recent laparoscopic appendectomy on 10/13/2024 3. Loops of dilated fluid-filled small bowel with findings likely related to developing ileus noted on CT scan. Patient is having bowel movements. PLAN: -Continue antibiotics for pyelonephritis -Agree with regular diet. Patient is having bowel movements. -No surgical intervention planned -Continue supportive care Physician Tape Editor note has been reviewed by physician. Signing provider agrees with the documented findings, assessment, and plan of care. Past Medical History Past Medical History: No Reported History Additional Past Medical History / Comment(s): . pseudoseizure History of Any Multi-Drug Resistant Organisms: None Reported Past Surgical History: Cholecystectomy Past Anesthesia/Blood Transfusion Reactions: No Reported Reaction Past Psychological History: No Psychological Hx Reported Smoking Status: Former smoker Past Alcohol Use History: None Reported Past Drug Use History: Marijuana - Past Family History Mother Family Medical History: No Reported History Father Family Medical History: Diabetes Mellitus Medications and Allergies Home Medications Medication Instructions Recorded Confirmed Type Acetaminophen Tab [Tylenol Tab] 500 mg PO Q6H PRN 11/08/24 11/08/24 History Ibuprofen [Motrin Ib] 400 mg PO Q6H PRN 11/08/24 11/08/24 History Naproxen Sodium [Aleve] 440 mg PO BID PRN 11/08/24 11/08/24 History Allergies Allergy/AdvReac Type Severity Reaction Status Date / Time amoxicillin Allergy Anaphylaxis/swelling Verified 11/08/24 07:27 of feet/rash Surgical - Exam Vital Signs Temp Pulse Resp BP Pulse Ox 100.3 F H 140 H 20 98/68 97 11/07/24 18:55 11/07/24 18:55 11/07/24 18:55 11/07/24 18:55 11/07/24 18:55 Results - Labs 11/08/24 09:15 11/08/24 09:15 Abnormal Lab Results - Last 24 Hours (Table) 11/07/24 11/07/24 11/07/24 Range/Units 19:10 19:10 19:10 WBC 26.7 H (4.0-11.0) k/uL RBC (3.80-5.40) m/uL Hgb (11.4-16.0) gm/dL Hct (34.0-46.0) % MCV 76.4 L (80.0-100.0) fL RDW (11.5-15.5) % Neutrophils # 23.5 H (1.3-7.7) k/uL Monocytes # 1.6 H (0-1.0) k/uL Potassium 3.4 L (3.5-5.1) mmol/L Chloride (98-107) mmol/L Carbon Dioxide 18 L (22-30) mmol/L Glucose 120 H (74-99) mg/dL Plasma Lactic Acid Jamie 2.4 H* (0.7-2.0) mmol/L Calcium (8.4-10.2) mg/dL Magnesium 1.4 L (1.6-2.3) mg/dL AST (14-36) U/L ALT (4-34) U/L Total Protein 9.0 H (6.3-8.2) g/dL Albumin (3.5-5.0) g/dL Urine Appearance (Clear) Urine Protein (Negative) Urine Blood (Negative) Urine Nitrite (Negative) Ur Leukocyte Esterase (Negative) Urine RBC (0-5) /hpf Urine WBC (0-5) /hpf Urine WBC Clumps (None) /hpf Ur Squamous Epith Cells (0-4) /hpf Amorphous Sediment (None) /hpf Urine Bacteria (None) /hpf Urine Mucus (None) /hpf Urine Opiates Screen (NotDetected) U Benzodiazepines Scrn (NotDetected) U Marijuana (THC) Screen (NotDetected) 11/07/24 11/08/24 11/08/24 Range/Units 20:05 09:15 09:15 WBC 20.9 H (4.0-11.0) k/uL RBC 3.58 L (3.80-5.40) m/uL Hgb 9.1 L D (11.4-16.0) gm/dL Hct 28.0 L (34.0-46.0) % MCV 78.3 L (80.0-100.0) fL RDW 15.7 H (11.5-15.5) % Neutrophils # (1.3-7.7) k/uL Monocytes # (0-1.0) k/uL Potassium (3.5-5.1) mmol/L Chloride 109 H (98-107) mmol/L Carbon Dioxide 19 L (22-30) mmol/L Glucose (74-99) mg/dL Plasma Lactic Acid Jamie (0.7-2.0) mmol/L Calcium 8.3 L (8.4-10.2) mg/dL Magnesium (1.6-2.3) mg/dL AST 100 H (14-36) U/L ALT 78 H (4-34) U/L Total Protein 6.2 L (6.3-8.2) g/dL Albumin 3.3 L (3.5-5.0) g/dL Urine Appearance Turbid H (Clear) Urine Protein 2+ H (Negative) Urine Blood Small H (Negative) Urine Nitrite Positive H (Negative) Ur Leukocyte Esterase Large H (Negative) Urine RBC 18 H (0-5) /hpf Urine WBC >182 H (0-5) /hpf Urine WBC Clumps Occasional H (None) /hpf Ur Squamous Epith Cells 18 H (0-4) /hpf Amorphous Sediment Rare H (None) /hpf Urine Bacteria Rare H (None) /hpf Urine Mucus Many H (None) /hpf Urine Opiates Screen Detected H (NotDetected) U Benzodiazepines Scrn Detected H (NotDetected) U Marijuana (THC) Screen Detected H (NotDetected) Diabetes panel 11/07/24 11/08/24 Range/Units 19:10 09:15 Sodium 140 137 (137-145) mmol/L Potassium 3.4 L 3.6 (3.5-5.1) mmol/L Chloride 106 109 H (98-107) mmol/L Carbon Dioxide 18 L 19 L (22-30) mmol/L BUN 11 9 (7-17) mg/dL Creatinine 0.88 0.71 (0.52-1.04) mg/dL Glucose 120 H 91 (74-99) mg/dL Calcium 9.7 8.3 L (8.4-10.2) mg/dL AST 19 100 H (14-36) U/L ALT 13 78 H (4-34) U/L Alkaline Phosphatase 97 85 (38-126) U/L Total Protein 9.0 H 6.2 L (6.3-8.2) g/dL Albumin 5.0 3.3 L (3.5-5.0) g/dL Calcium panel 11/07/24 11/08/24 Range/Units 19:10 09:15 Calcium 9.7 8.3 L (8.4-10.2) mg/dL Albumin 5.0 3.3 L (3.5-5.0) g/dL Pituitary panel 11/07/24 11/08/24 Range/Units 19:10 09:15 Sodium 140 137 (137-145) mmol/L Potassium 3.4 L 3.6 (3.5-5.1) mmol/L Chloride 106 109 H (98-107) mmol/L Carbon Dioxide 18 L 19 L (22-30) mmol/L BUN 11 9 (7-17) mg/dL Creatinine 0.88 0.71 (0.52-1.04) mg/dL Glucose 120 H 91 (74-99) mg/dL Calcium 9.7 8.3 L (8.4-10.2) mg/dL Adrenal panel 11/07/24 11/08/24 Range/Units 19:10 09:15 Sodium 140 137 (137-145) mmol/L Potassium 3.4 L 3.6 (3.5-5.1) mmol/L Chloride 106 109 H (98-107) mmol/L Carbon Dioxide 18 L 19 L (22-30) mmol/L BUN 11 9 (7-17) mg/dL Creatinine 0.88 0.71 (0.52-1.04) mg/dL Glucose 120 H 91 (74-99) mg/dL Calcium 9.7 8.3 L (8.4-10.2) mg/dL Total Bilirubin 0.7 0.4 (0.2-1.3) mg/dL AST 19 100 H (14-36) U/L ALT 13 78 H (4-34) U/L Alkaline Phosphatase 97 85 (38-126) U/L Total Protein 9.0 H 6.2 L (6.3-8.2) g/dL Albumin 5.0 3.3 L (3.5-5.0) g/dL
[2024-11-08] MEDS: ONDANSETRON 4 MG/2 ML VIAL IVP PRN (13:47)
[2024-11-08] MEDS: PROCHLORPERAZINE INJ 10 MG/2 ML VIAL IVP STA (15:39)
[2024-11-08] MEDS: HYDROmorphone 0.5 MG/0.5 ML SYRINGE IVP PRN (15:51)
--- NOTE | 2024-11-08 18:15 | P.PN ---
Subjective Progress Note Date: 11/08/24 Hospital course: Patient is a 18-year-old female with a past medical history of stress-induced pseudoseizures and cannabis use disorder. She presented to the emergency department with a chief complaint of seizure, abdominal pain, and back pain. Upon arrival to our facility, patient underwent evaluation in the emergency department. Vital signs upon arrival show blood pressure 98/68, heart rate 140, respiratory rate 20, temp 100.3 F, and SpO2 of 97% on room air. EKG was completed showing sinus tachycardia at 124 bpm. Labs were completed and reviewed. CBC showing leukocytosis with WBC count of 26.7. BMP showing hypokalemia with potassium of 3.4 and high anion gap metabolic acidosis with chloride of 106, bicarb of 18, and anion gap of 16. Blood glucose was 120. Lactic acid was 2.4. Magnesium 1.4. Urinalysis was a contaminated specimen but concerning for UTI with nitrites, leukocyte esterase, and greater than 182 WBCs. Urine hCG was negative for . Urine drug screen was positive for opiates, benzodiazepines, and marijuana. Influenza A, influenza B, RSV, and COVID PCR were negative. CT abdomen and pelvis was completed concerning for development of right sided pyelonephritis and concerns of developing ileus. Patient was started on IV antibiotics with Rocephin and admitted under our services for sepsis secondary to acute pyelonephritis. Physical exam: Vital signs reviewed and stable. General: Nontoxic, no distress and appears stated age. Derm: Skin warm and dry, normal coloration for ethnicity. Head: Atraumatic, normocephalic and symmetric. Eyes: EOM's intact, no lid lag, and anicteric sclera Mouth: no lip lesions, mucus membranes moist Cardiovascular: regular rate and rhythm with normal S1S2, no murmur, positive posterior tibial pulses bilaterally, and cap refill < 2 seconds. Lungs: Respirations even, regular, and unlabored on room air. Lungs CTA bilaterally, no rhonchi, no rales, no wheezing, and no accessory muscle usage. Abdominal: soft, diffuse abdominal pain upon palpation worse right upper flank, no guarding, no appreciable organomegaly Ext: ROM intact. No gross muscle atrophy, no edema, no contractures Neuro: Speech clear, face symmetrical and CN II-XII grossly intact with no noted focal neuro deficits Psych: Alert and oriented to person, place, time, and situation. Appropriate and pleasant affect. Assessment and Plan of Care: Acute pyelonephritis Sepsis on arrival secondary to above High anion gap metabolic acidosis, secondary to above -Continue IV antibiotics with Rocephin 2 g every 24 hours. -Follow-up on urine culture and blood culture results. -Continue with aggressive IV fluid hydration with 0.9% normal saline at 130 cc/h for an additional 24 hours. -Symptomatic care and pain management. Tylenol 650 mg every 6 hours as needed for mild pain and/or fever, Toradol 15 mg IVP every 6 hours as needed for m oderate pain, and Dilaudid 0.5 mg IVP every 4 hours as needed for severe pain. -Zofran 4 mg IVP every 8 hours as needed for nausea/vomiting Postoperative ileus status post appendectomy -Patient underwent laparoscopic appendectomy on 10/13/2024 now presenting with abdominal pain, nausea, and vomiting. CT concerning for development of ileus. -Continue IV fluid hydration. Monitor output. -General Surgery following. Reported seizure activity with history of stress-induced pseudoseizures -Maintain seizure precautions and fall precautions. Cannabinoid use disorder -Urine drug screen positive for opiates, benzodiazepines, and marijuana. -Recommend cessation of use. Data and imaging reviewed: As stated above in HPI CODE STATUS: Full Code DVT prophylaxis: Lovenox Anticipated discharge date: Pending clinical course Anticipated discharge place: Home Patient was seen independently by Nurse Pracitioner. This document was prepared using [facility] dictation software. Please allow for errors in student activities director, while rare they do occur. Deven Jones NP rendered care for this patient independently, reviewed the findings and plan as documented in the note above and agree with plan. I did not physically speak with or examine the patient on this date. Objective - Vital Signs Vital signs: Vital Signs Temp 98.2 F 11/07/24 21:13 Pulse 105 H 11/08/24 08:06 Resp 18 11/08/24 08:06 BP 99/59 11/08/24 08:06 Pulse Ox 98 11/08/24 08:06 FiO2 Intake & Output 11/07/24 11/08/24 11/08/24 18:59 06:59 18:59 Weight 49.895 kg - Labs CBC & Chem 7: 11/08/24 09:15 12/17/24 09:15 Labs: Abnormal Lab Results - Last 24 Hours (Table) 11/07/24 11/07/24 11/07/24 Range/Units 19:10 19:10 19:10 WBC 26.7 H (4.0-11.0) k/uL MCV 76.4 L (80.0-100.0) fL Neutrophils # 23.5 H (1.3-7.7) k/uL Monocytes # 1.6 H (0-1.0) k/uL Potassium 3.4 L (3.5-5.1) mmol/L Carbon Dioxide 18 L (22-30) mmol/L Glucose 120 H (74-99) mg/dL Plasma Lactic Acid Jamie 2.4 H* (0.7-2.0) mmol/L Magnesium 1.4 L (1.6-2.3) mg/dL Total Protein 9.0 H (6.3-8.2) g/dL Urine Appearance (Clear) Urine Protein (Negative) Urine Blood (Negative) Urine Nitrite (Negative) Ur Leukocyte Esterase (Negative) Urine RBC (0-5) /hpf Urine WBC (0-5) /hpf Urine WBC Clumps (None) /hpf Ur Squamous Epith Cells (0-4) /hpf Amorphous Sediment (None) /hpf Urine Bacteria (None) /hpf Urine Mucus (None) /hpf Urine Opiates Screen (NotDetected) U Benzodiazepines Scrn (NotDetected) U Marijuana (THC) Screen (NotDetected) 11/07/24 Range/Units 20:05 WBC (4.0-11.0) k/uL MCV (80.0-100.0) fL Neutrophils # (1.3-7.7) k/uL Monocytes # (0-1.0) k/uL Potassium (3.5-5.1) mmol/L Carbon Dioxide (22-30) mmol/L Glucose (74-99) mg/dL Plasma Lactic Acid Jamie (0.7-2.0) mmol/L Magnesium (1.6-2.3) mg/dL Total Protein (6.3-8.2) g/dL Urine Appearance Turbid H (Clear) Urine Protein 2+ H (Negative) Urine Blood Small H (Negative) Urine Nitrite Positive H (Negative) Ur Leukocyte Esterase Large H (Negative) Urine RBC 18 H (0-5) /hpf Urine WBC >182 H (0-5) /hpf Urine WBC Clumps Occasional H (None) /hpf Ur Squamous Epith Cells 18 H (0-4) /hpf Amorphous Sediment Rare H (None) /hpf Urine Bacteria Rare H (None) /hpf Urine Mucus Many H (None) /hpf Urine Opiates Screen Detected H (NotDetected) U Benzodiazepines Scrn Detected H (NotDetected) U Marijuana (THC) Screen Detected H (NotDetected)
[2024-11-09] MEDS: TRIMETHOBENZAMIDE 100 MG/ML 2 ML VIAL IM STA (01:24)
[2024-11-09 08:44] LABS: HCT 25.8 % (37.2-46.3); HGB 7.9 g/dL (12.0-15.0); MCH 24.5 pg (27.0-32.0); MCHC 30.6 g/dL (32.0-37.0); MCV 80.1 FL (80.0-97.0); NRBC Per 100 WBC 0 X 10*3/uL (0.00-0.01); Platelet Count 196 X 10*3/uL (140-440); RBC 3.22 X 10*6/uL (4.10-5.20); RDW 16.1 % (11.5-14.5); WBC 18.57 X 10*3/uL (4.50-10.00)
[2024-11-09 09:13] LABS: ALT 47 U/L (8-44); AST 34 U/L (13-35); Albumin 3.1 g/dL (3.8-4.9); Albumin/Globulin Ratio 1.15 Ratio (1.60-3.17); Alkaline Phosphatase 75 U/L (41-126); BUN/Creat Ratio 12.71 Ratio (12.00-20.00); Blood Urea Nitrogen 8.9 mg/dL (9.0-27.0); Carbon Dioxide 20.5 mmol/L (21.6-31.8); Chloride 108 mmol/L (96-109); Globulin 2.7 g/dL (1.6-3.3); Glucose 88 mg/dL (70-110); Magnesium 1.9 mg/dL (1.5-2.4); Sodium 138 mmol/L (135-145); Total Bilirubin 0.2 mg/dL (0.3-1.2); Total Protein 5.8 g/dL (6.2-8.2)
--- NOTE | 2024-11-09 12:50 | P.PN ---
Subjective Progress Note Date: 11/09/24 Hospital course: Patient is a 18-year-old female with a past medical history of stress-induced pseudoseizures and cannabis use disorder. She presented to the emergency department with a chief complaint of seizure, abdominal pain, and back pain. Upon arrival to our facility, patient underwent evaluation in the emergency department. Vital signs upon arrival show blood pressure 98/68, heart rate 140, respiratory rate 20, temp 100.3 F, and SpO2 of 97% on room air. EKG was completed showing sinus tachycardia at 124 bpm. Labs were completed and reviewed. CBC showing leukocytosis with WBC count of 26.7. BMP showing hypokalemia with potassium of 3.4 and high anion gap metabolic acidosis with chloride of 106, bicarb of 18, and anion gap of 16. Blood glucose was 120. Lactic acid was 2.4. Magnesium 1.4. Urinalysis was a contaminated specimen but concerning for UTI with nitrites, leukocyte esterase, and greater than 182 WBCs. Urine hCG was negative for . Urine drug screen was positive for opiates, benzodiazepines, and marijuana. Influenza A, influenza B, RSV, and COVID PCR were negative. CT abdomen and pelvis was completed concerning for development of right sided pyelonephritis and concerns of developing ileus. Patient was started on IV antibiotics with Rocephin and admitted under our services for sepsis secondary to acute pyelonephritis. Physical exam: Patient seen and fully evaluated at bedside this morning. She reports continued but slightly improved pain to right flank. She denies having any nausea or vomiting and reports tolerating oral intake. Patient reports having normal bowel movements and currently reports urinary frequency otherwise denies having any additional urinary complaints at this time including hematuria, dysuria, or urgency. Temperature high over the past 24 hours was 100.2 F. Vital signs reviewed and stable. General: Nontoxic, no distress and appears stated age. Derm: Skin warm and dry, normal coloration for ethnicity. Head: Atraumatic, normocephalic and symmetric. Eyes: EOM's intact, no lid lag, and anicteric sclera Mouth: no lip lesions, mucus membranes moist Cardiovascular: regular rate and rhythm with normal S1S2, no murmur, positive posterior tibial pulses bilaterally, and cap refill < 2 seconds. Lungs: Respirations even, regular, and unlabored on room air. Lungs CTA bilaterally, no rhonchi, no rales, no wheezing, and no accessory muscle usage. Abdominal: soft, diffuse abdominal pain upon palpation worse right upper flank, no guarding, no appreciable organomegaly Ext: ROM intact. No gross muscle atrophy, no edema, no contractures Neuro: Speech clear, face symmetrical and CN II-XII grossly intact with no noted focal neuro deficits Psych: Alert and oriented to person, place, time, and situation. Appropriate and pleasant affect. Assessment and Plan of Care: Acute pyelonephritis E. coli bacteremia, likely secondary to above Sepsis on arrival secondary to above High anion gap metabolic acidosis, secondary to above Sinus tachycardia and hypotension, secondary to sepsis and above -Continue IV antibiotics with Rocephin 2 g every 24 hours. -Blood cultures preliminarily resulting positive for E. coli and molecular ID. Urine culture preliminarily positive for gram-negative bacilli. -Infectious disease consulted -Symptomatic care and pain management. Tylenol 650 mg every 6 hours as needed for mild pain and/or fever, Toradol 15 mg IVP every 6 hours as needed for moderate pain, and Dilaudid 0.5 mg IVP every 4 hours as needed for severe pain. -Zofran 4 mg IVP every 8 hours as needed for nausea/vomiting Acute normocytic microchromic anemia -Suspect secondary to dilution as patient has received aggressive IV fluid hydration for treatment of sepsis with hypotension on arrival. -Order was placed for iron profile and repeat CBC to recheck/verify hemoglobin level. -Will continue to monitor hemoglobin levels closely and place additional orders if/as indicated based upon these findings. Postoperative ileus status post appendectomy, resolved. Patient reports now having normal bowel movements. -Patient underwent laparoscopic appendectomy on 10/13/2024 now presenting with abdominal pain, nausea, and vomiting. CT concerning for development of ileus. -General Surgery following. Reviewed documentation in chart. Reported seizure activity with history of stress-induced pseudoseizures -Maintain seizure precautions and fall precautions. Cannabinoid use disorder -Urine drug screen positive for opiates, benzodiazepines, and marijuana. -Recommend cessation of use. Data and imaging reviewed: CBC showing improvement of leukocytosis with WBC count decreasing to 18.57 from initial 26.7. Hemoglobin also decreasing to 7.9, this is likely due to diuresis but we will repeat CBC to recheck/verify hemoglobin level. BMP showing mild hypocarbia with bicarb of 20.5 otherwise normal findings. Blood glucose 88. Magnesium 1.9. Liver profile showing elevated ALT of 47 otherwise normal findings. Albumin was low at 3.1. Vital signs reviewed stable with blood pressure 100/65, heart rate 89, respiratory rate 16, temp 98.3 F, and SpO2 100% on room air. Highest temp over the past 24 hours was 100.2 F. CODE STATUS: Full Code DVT prophylaxis: Lovenox Anticipated discharge date: Pending clinical course Anticipated discharge place: Home Patient was seen independently by Nurse Pracitioner. This document was prepared using [employer] dictation software. Please allow for errors in ring attacher, while rare they do occur. Deven Jones NP rendered care for this patient independently, reviewed the findings and plan as documented in the note above and agree with plan. I did not physically speak with or examine the patient on this date. Objective - Vital Signs Vital signs: Vital Signs Temp 98.3 F 11/09/24 07:37 Pulse 89 11/09/24 07:37 Resp 16 11/09/24 07:37 BP 100/65 11/09/24 07:37 Pulse Ox 100 11/09/24 07:37 FiO2 Intake & Output 11/08/24 11/09/24 11/09/24 18:59 06:59 18:59 Weight 49.895 kg Other: # Voids 0 4 - Labs CBC & Chem 7: 11/09/24 04:46 11/09/24 04:46 Labs: Abnormal Lab Results - Last 24 Hours (Table) 11/08/24 11/08/24 11/09/24 Range/Units 09:15 09:15 04:46 WBC 20.9 H 18.57 H (4.0-11.0) k/uL RBC 3.58 L 3.22 L (3.80-5.40) m/uL Hgb 9.1 L D 7.9 L (11.4-16.0) gm/dL Hct 28.0 L 25.8 L (34.0-46.0) % MCV 78.3 L (80.0-100.0) fL MCH 24.5 L (27.0-32.0) pg MCHC 30.6 L (32.0-37.0) g/dL RDW 15.7 H 16.1 H (11.5-15.5) % Chloride 109 H (98-107) mmol/L Carbon Dioxide 19 L (22-30) mmol/L Calcium 8.3 L (8.4-10.2) mg/dL AST 100 H (14-36) U/L ALT 78 H (4-34) U/L Total Protein 6.2 L (6.3-8.2) g/dL Albumin 3.3 L (3.5-5.0) g/dL Microbiology - Last 24 Hours (Table) 11/07/24 20:50 Blood Culture Gram Stain - Preliminary Blood Blood Culture - Preliminary Escherichia coli Molecular ID 11/07/24 20:05 Urine Culture - Preliminary Urine,Voided Gram Neg Bacilli
--- NOTE | 2024-11-09 13:31 | P.PN ---
Subjective Progress Note Date: 11/09/24 SURGICAL PROGRESS NOTE CHIEF COMPLAINT: Pyelonephritis HISTORY OF PRESENT ILLNESS: Patient reports she is starting to feel better. She did have a low-grade temp of 100.2 last night. Tachycardia improved. WBC is down from 20-18. She is having flatus. Last bowel movement prior to admission. Denies any nausea or vomiting. WBC is 18.57 Hgb 7.9 platelets 196. Positive blood culture with E. coli PHYSICAL EXAM: VITAL SIGNS: Reviewed. GENERAL: Well-developed in no acute distress. ABDOMEN: Soft. Nondistended. Right flank tenderness with palpation NEUROLOGIC: Alert and oriented. Cranial nerves II through XII grossly intact. ASSESSMENT: 1. Right sided pyelonephritis 2. Status post recent laparoscopic appendectomy on 10/13/2024 3. Loops of dilated fluid-filled small bowel with findings likely related to developing ileus noted on CT scan. Patient is had bowel movement prior to admission PLAN: -No surgical intervention planned -Continue supportive care -Continue regular diet -Continue antibiotics for pyelonephritis Physician Trim Attacher note has been reviewed by physician. Signing provider agrees with the documented findings, assessment, and plan of care. Objective - Vital Signs Vital signs: Vital Signs Temp 98.3 F 11/09/24 07:37 Pulse 89 11/09/24 07:37 Resp 16 11/09/24 07:37 BP 100/65 11/09/24 07:37 Pulse Ox 100 11/09/24 07:37 FiO2 Intake & Output 11/08/24 11/09/24 11/09/24 18:59 06:59 18:59 Intake Total 118 Balance 118 Weight 49.895 kg Intake: Oral 118 Other: # Voids 0 4 - Labs CBC & Chem 7: 11/09/24 04:46 11/09/24 04:46 Labs: Abnormal Lab Results - Last 24 Hours (Table) 11/09/24 11/09/24 Range/Units 04:46 04:46 WBC 18.57 H (4.50-10.00) X 10*3/uL RBC 3.22 L (4.10-5.20) X 10*6/uL Hgb 7.9 L (12.0-15.0) g/dL Hct 25.8 L (37.2-46.3) % MCH 24.5 L (27.0-32.0) pg MCHC 30.6 L (32.0-37.0) g/dL RDW 16.1 H (11.5-14.5) % Carbon Dioxide 20.5 L (21.6-31.8) mmol/L BUN 8.9 L (9.0-27.0) mg/dL Calcium 8.0 L (8.7-10.3) mg/dL Total Bilirubin 0.2 L (0.3-1.2) mg/dL ALT 47 H (8-44) U/L Total Protein 5.8 L (6.2-8.2) g/dL Albumin 3.1 L (3.8-4.9) g/dL Albumin/Globulin Ratio 1.15 L (1.60-3.17) Ratio Microbiology - Last 24 Hours (Table) 11/07/24 20:50 Blood Culture Gram Stain - Preliminary Blood Blood Culture - Preliminary Escherichia coli Molecular ID 11/07/24 20:05 Urine Culture - Preliminary Urine,Voided Gram Neg Bacilli
[2024-11-09 13:48] LABS: HCT 23.2 % (34.0-46.0); Hypochromasia Slight; MCH 25.3 pg (25.0-35.0); MCHC 32.1 g/dL (31.0-37.0); MCV 78.7 fL (80.0-100.0); Mean Platelet Volume 7.9; Microcytosis Slight; Platelet Count 173 k/uL (150-450); RBC 2.95 m/uL (3.80-5.40); RDW 15.8 % (11.5-15.5); WBC 12.9 k/uL (4.0-11.0)
[2024-11-09 13:51] LABS: HGB 7.5 gm/dL (11.4-16.0)
[2024-11-09 18:49] LABS: Total Iron Binding Capacity 262 UG/DL (228-460)
[2024-11-09 18:55] LABS: Iron <6 UG/DL (50-170)
[2024-11-09 20:56] LABS: % Iron Saturation <2.29 (12.00-45.00)
--- NOTE | 2024-11-10 07:35 | P.CONS ---
History of Present Illness - Reason for Consult Consult date: 11/09/24 E. coli bacteremia, pyelonephritis Requesting physician: Deven Jones - Chief Complaint Abdominal pain x few days - History of Present Illness Patient is a 18-year-old female with a past medical history significant for pseudoseizure former smoker presenting to the hospital 2 days ago for evaluation of right-sided abdominal pain patient pain apparently has been getting worse for a day or 2 for the patient was brought to the hospital patient was describing the pain to be sharp in nature and almost 10 of 10 in intensity with associated nausea no vomiting did have some loose stool and was also running a fever on presentation to the hospital patient did have a temperature of 100.3 F patient was tachycardic but not hypotensive or hypoxic and no need for supplemental oxygen patient did have a elevated white count 26.7 on admission with a left shift creatinine 0.88 liver enzymes are normal urine was significantly positive for urine drug screen was positive for opiates and benzos and marijuana influenza RSV COVID testing was negative patient did have abdominal pelvis CT finding concerning for development of right-sided pyelonephritis loops of dilated fluid-filled small bowel patient has been treated with Rocephin blood cultures came back positive with E. coli prompting this consultation Review of Systems Positive point and negatives has been mentioned in the HPI, complete review of systems was performed and all other systems are negative Past Medical History Past Medical History: No Reported History Additional Past Medical History / Comment(s): . pseudoseizure History of Any Multi-Drug Resistant Organisms: None Reported Past Surgical History: Appendectomy, Cholecystectomy Past Anesthesia/Blood Transfusion Reactions: No Reported Reaction Past Psychological History: No Psychological Hx Reported Smoking Status: Former smoker Past Alcohol Use History: None Reported Additional Past Alcohol Use History / Comment(s): pt reports "use to be an alcoholic" stoppped drinking 4 years ago Past Drug Use History: Marijuana - Past Family History Mother Family Medical History: No Reported History Father Family Medical History: Diabetes Mellitus Medications and Allergies Home Medications Medication Instructions Recorded Confirmed Type Acetaminophen Tab [Tylenol Tab] 500 mg PO Q6H PRN 11/08/24 11/08/24 History Ibuprofen [Motrin Ib] 400 mg PO Q6H PRN 11/08/24 11/08/24 History Naproxen Sodium [Aleve] 440 mg PO BID PRN 11/08/24 11/08/24 History Allergies Allergy/AdvReac Type Severity Reaction Status Date / Time amoxicillin Allergy Anaphylaxis/swelling Verified 11/08/24 07:27 of feet/rash Physical Exam Vitals: Vital Signs Temp Pulse Pulse Resp BP BP Pulse Ox 11/09/24 07:37 98.3 F 89 16 100/65 100 11/09/24 00:19 99.1 F 99 15 99/62 99 11/08/24 20:00 16 11/08/24 16:17 100.2 F H 122 H 16 110/73 97 11/08/24 15:38 130 H 20 98/74 98 11/08/24 10:48 100.1 F H 107 H 18 127/77 99 Intake and Output 11/08/24 11/09/24 11/09/24 22:59 06:59 14:59 Intake Total 118 Balance 118 Intake: Oral 118 Other: # Voids 0 4 Weight 49.895 kg GENERAL DESCRIPTION: Young female lying in bed, no distress. No tachypnea or accessory muscle of respiration use. HEENT: Shows Pallor , no scleral icterus. Oral mucous membrane is dry. No pharyngeal erythema or thrush NECK: Trachea central, no thyromegaly. LUNGS: Unlabored breathing. Clear to auscultation anteriorly. No wheeze or crackle. HEART: S1, S2, regular rate and rhythm. No loud murmur ABDOMEN: Soft, no tenderness , guarding or rigidity, no organomegaly EXTREMITIES: No edema of feet. SKIN: No rash, no masses palpable. NEUROLOGICAL: The patient is awake, alert, oriented x3, mood and affect normal. Results CBC & Chem 7: 11/09/24 13:02 11/09/24 04:46 Labs: Abnormal Lab Results - Last 24 Hours (Table) 11/09/24 11/09/24 Range/Units 04:46 04:46 WBC 18.57 H (4.50-10.00) X 10*3/uL RBC 3.22 L (4.10-5.20) X 10*6/uL Hgb 7.9 L (12.0-15.0) g/dL Hct 25.8 L (37.2-46.3) % MCH 24.5 L (27.0-32.0) pg MCHC 30.6 L (32.0-37.0) g/dL RDW 16.1 H (11.5-14.5) % Carbon Dioxide 20.5 L (21.6-31.8) mmol/L BUN 8.9 L (9.0-27.0) mg/dL Calcium 8.0 L (8.7-10.3) mg/dL Total Bilirubin 0.2 L (0.3-1.2) mg/dL ALT 47 H (8-44) U/L Total Protein 5.8 L (6.2-8.2) g/dL Albumin 3.1 L (3.8-4.9) g/dL Albumin/Globulin Ratio 1.15 L (1.60-3.17) Ratio Microbiology - Last 24 Hours (Table) 11/07/24 20:50 Blood Culture Gram Stain - Preliminary Blood Blood Culture - Preliminary Escherichia coli Molecular ID 11/07/24 20:05 Urine Culture - Preliminary Urine,Voided Gram Neg Bacilli Assessment and Plan (1) E coli bacteremia Current Visit: Yes Status: Acute Code(s): R78.81 - BACTEREMIA; B96.20 - UNSP ESCHERICHIA COLI THE CAUSE OF DISEASES [facility]SD [facility] SNOMED Code(s): 519227266314 (2) Penicillin allergy Current Visit: Yes Status: Acute Code(s): Z88.0 - ALLERGY STATUS TO PENICILLIN SNOMED Code(s): 63991092 (3) Pyelonephritis Current Visit: Yes Status: Acute Code(s): N12 - TUBULO-INTERSTITIAL NEPHRITIS, NOT SPCF ACUTE OR CHRONIC SNOMED Code(s): 35685432 (4) Sepsis Current Visit: Yes Status: Acute Code(s): A41.9 - SEPSIS, UNSPECIFIED ORGANISM SNOMED Code(s): 39597001 Plan: 1patient presented to hospital with sepsis in this patient who did have fever tachycardia elevated white count meeting criteria for SIRS source is right-sided pyelonephritis with no evidence of any stones or hydronephrosis. 2E. coli bacteremia source is right-sided pyelonephritis. 3-penicillin allergy that will limit the number of antibiotics safe to use 4Rocephin 2 g daily while waiting for final sensitivity. Question concern answered We will follow on clinical condition and cultures to further adjust medication if needed Thank you for this consultation we will follow the patient along with you Dictation was produced using [employer] software. please excuse any grammatical, word or spelling errors. Time with Patient: Greater than 30
[2024-11-10 08:23] VITALS: BP 99/60; PULSE 84; RESP 15; TEMP 98
--- NOTE | 2024-11-10 11:34 | P.DS ---
Providers Date of admission: 11/07/24 21:46 Expected date of discharge: 11/10/24 Attending physician: Salazar Shore MD Consults: 11/08/24 04:21 Consult Physician Urgent Consulting Provider: Luisito Azar Consult Reason/Comments: s/p appendectomy Do you want consulting provider notified?: Yes 11/09/24 09:09 Consult Physician Routine Consulting Provider: Yasemin Hudson Consult Reason/Comments: E.Coli bacteremia s/t pyelonephritis Do you want consulting provider notified?: Yes Primary care physician: Stated None Hospital Course: Discharge Diagnosis: Acute pyelonephritis E. coli bacteremia, likely secondary to above Sepsis on arrival secondary to above High anion gap metabolic acidosis, secondary to above Sinus tachycardia and hypotension upon arrival, secondary to sepsis and above. Acute normocytic microchromic anemia. Suspect acute on chronic iron deficiency anemia as patient has documented history of anemia dating back to 2021 with baseline hemoglobin around 9. Current hemoglobin 7.5. Pt denies any bleeding or bruising and denies black tarry stools or blood in stools. Suspect drop in hgb due to dilution as pt was treated with aggressive IV fluid hydration. Iron profile was obtained during admission but results not available at time of discharge. Patient was started on ferrous sulfate 325 mg daily and provided with prescription for repeat CBC in 3 days. Patient was instructed she will need to follow-up with residency clinic for follow-up and repeat lab work. Postoperative ileus status post appendectomy. Resolved, patient reports now having normal bowel movements. Reported seizure activity prior to arrival with history of stress-induced pseudoseizures Cannabinoid use disorder. Urine drug screen positive for opiates, benzodiazepines, and marijuana. Recommend cessation of use. Hospital Course: Patient is a 18-year-old female with a past medical history of stress-induced pseudoseizures and cannabis use disorder. She presented to the emergency department with a chief complaint of seizure, abdominal pain, and back pain. Upon arrival to our facility, patient underwent evaluation in the emergency dep artment. Vital signs upon arrival show blood pressure 98/68, heart rate 140, respiratory rate 20, temp 100.3 F, and SpO2 of 97% on room air. EKG was completed showing sinus tachycardia at 124 bpm. Labs were completed and reviewed. CBC showing leukocytosis with WBC count of 26.7. BMP showing hypokalemia with potassium of 3.4 and high anion gap metabolic acidosis with chloride of 106, bicarb of 18, and anion gap of 16. Blood glucose was 120. Lactic acid was 2.4. Magnesium 1.4. Urinalysis was a contaminated specimen but concerning for UTI with nitrites, leukocyte esterase, and greater than 182 WBCs. Urine hCG was negative for . Urine drug screen was positive for opiates, benzodiazepines, and marijuana. Influenza A, influenza B, RSV, and COVID PCR were negative. CT abdomen and pelvis was completed concerning for development of right sided pyelonephritis and concerns of developing ileus. Patient was started on IV antibiotics with Rocephin and admitted under our servi michelle for sepsis secondary to acute pyelonephritis. Blood cultures preliminarily resulted positive for E. coli and infectious disease was consulted. Final blood culture and urine culture results were positive for E. coli resistant to ampicillin and Unasyn. Discussed with infectious disease, patient cleared from his perspective for discharge home on Ceftin 500 mg twice daily x 10 days. Educated patient on the importance of taking entire antibiotic course as prescribed without missing any doses and need for follow-up with PCP for follow- up and repeat blood work. Patient verbalized understanding and is medically stable for discharge home at this time. Physical exam: Vital signs reviewed and stable. General: Nontoxic, no distress and appears stated age. Derm: Skin warm and dry, normal coloration for ethnicity. Head: Atraumatic, normocephalic and symmetric. Eyes: EOM's intact, no lid lag, and anicteric sclera Mouth: no lip lesions, mucus membranes moist Cardiovascular: regular rate and rhythm with normal S1S2, no murmur, positive posterior tibial pulses bilaterally, and cap refill < 2 seconds. Lungs: Respirations even, regular, and unlabored on room air. Lungs CTA bilaterally, no rhonchi, no rales, no wheezing, and no accessory muscle usage. Abdominal: soft, nontender upon palpation, no guarding, no appreciable organomegaly Ext: ROM intact. No gross muscle atrophy, no edema, no contractures Neuro: Speech clear, face symmetrical and CN II-XII grossly intact with no noted focal neuro deficits Psych: Alert and oriented to person, place, time, and situation. Appropriate and pleasant affect. A total of 34 minutes of time were spent preparing this complex discharge summary. Pt was discharged on 11/10/2024 at 11:03 AM. Patient was seen independently by Nurse Practitioner. This document was prepared using [employer] dictation software. Please allow for errors in accounts payable payroll coordinator while rare they do occur. Deven Jones NP rendered care for this patient independently, reviewed the findings and plan as documented in the note above. I did not physically speak with or examine the patient on this date. Patient Condition at Discharge: Stable Plan - Discharge Summary Discharge Rx Participant: No New Discharge Prescriptions: New cefuroxime axetiL [Ceftin] 500 mg PO BID 10 Days #20 tab Ferrous Sulfate [Iron (65 MG Elemental)] 325 mg PO DAILY 30 Days #30 tab Continue Naproxen Sodium [Aleve] 440 mg PO BID PRN PRN Reason: Pain Or Fever > 100.5 Ibuprofen [Motrin Ib] 400 mg PO Q6H PRN PRN Reason: Pain Or Fever > 100.5 Acetaminophen Tab [Tylenol] 500 mg PO Q6H PRN PRN Reason: Pain Or Fever > 100.5 Discharge Medication List Acetaminophen Tab [Tylenol] 500 mg PO Q6H PRN 11/08/24 [History] Ibuprofen [Motrin Ib] 400 mg PO Q6H PRN 11/08/24 [History] Naproxen Sodium [Aleve] 440 mg PO BID PRN 11/08/24 [History] Ferrous Sulfate [Iron (65 MG Elemental)] 325 mg PO DAILY 30 Days #30 tab 11/10/24 [Rx] cefuroxime axetiL [Ceftin] 500 mg PO BID 10 Days #20 tab 11/10/24 [Rx] Follow up Appointment(s)/Referral(s): [facility] [NON-STAFF] - 1 Week (Please call and schedule appointment for follow up PRIOR to discharging patient) Ambulatory/Diagnostic Orders: Complete Blood Count w/diff [LAB.AMB] Time Frame: 3 Days, Location: None Selected Patient Instructions/Handouts: Kidney Infection (DC), Bacteremia (DC) Activity/Diet/Wound Care/Special Instructions: Activity: As tolerated. Diet: Resume regular diet. Special Instructions: Take all of your medications as directed and remember to keep all of your doctor's appointments and follow-up as needed. Wishing you a blessed and wonderful holiday season and a happy healthy new year. Please as we discussed make sure you follow-up with internal medicine academic clinic for follow-up and repeat blood work. Thank you for allowing us to participate in your care, it was truly a pleasure having you for our patient!!! Discharge Disposition: HOME SELF-CARE
--- NOTE | 2024-11-10 13:03 | P.PN ---
Subjective Progress Note Date: 11/10/24 Principal diagnosis: Reason for follow-up is E. coli pyelonephritis and bacteremia Patient is a 18-year-old female with a past medical history significant for pseudoseizure former smoker presenting to the hospital for evaluation of right-sided abdominal pain, patient did have a CT abdominal pelvis concerning for right-sided pyelonephritis no evidence of any stones or hydronephrosis did have a positive blood culture with E. coli prompting this consultation. On today's evaluation that is 11/10/2024,the patient remains to be afebrile, patient is on room air not requiring supplemental oxygen and denies any shortness of breath no chest pain did have a mild dry cough.Patient denies having any nausea or vomiting, no abdominal pain and no diarrhea has been reported. Patient did not have a lab draw today blood urine with E. coli sensitive to ceftriaxone Objective - Vital Signs Vital signs: Vital Signs Temp 98.0 F 11/10/24 08:22 Pulse 84 11/10/24 08:22 Resp 15 11/10/24 08:22 BP 99/60 11/10/24 08:22 Pulse Ox 99 11/10/24 08:22 FiO2 Intake & Output 11/09/24 11/10/24 11/10/24 18:59 06:59 18:59 Intake Total 236 540 Balance 236 540 Intake: Oral 236 540 Other: # Voids 5 3 - Exam GENERAL DESCRIPTION: Young female up in bed in no distress RESPIRATORY SYSTEM: Unlabored breathing , mild wheeze - Labs CBC & Chem 7: 11/09/24 13:02 11/09/24 04:46 Labs: Abnormal Lab Results - Last 24 Hours (Table) 11/09/24 11/09/24 Range/Units 13:02 13:02 WBC 12.9 H (4.0-11.0) k/uL RBC 2.95 L (3.80-5.40) m/uL Hgb 7.5 L D (11.4-16.0) gm/dL Hct 23.2 L (34.0-46.0) % MCV 78.7 L (80.0-100.0) fL RDW 15.8 H (11.5-15.5) % Iron <6 L (50-170) UG/DL % Saturation <2.29 L (12.00-45.00) Transferrin 187.0 L (204.0-354.0) mg/dL Microbiology - Last 24 Hours (Table) 11/07/24 20:50 Blood Culture Gram Stain - Final Blood Blood Culture - Final Escherichia coli Molecular ID 11/07/24 20:05 Urine Culture - Final Urine,Voided Escherichia coli Assessment and Plan (1) E coli bacteremia Status: Acute Code(s): R78.81 - BACTEREMIA; B96.20 - UNSP ESCHERICHIA COLI THE CAUSE OF DISEASES [facility] SNOMED Code(s): 889706981628 (2) Penicillin allergy Status: Acute Code(s): Z88.0 - ALLERGY STATUS TO PENICILLIN SNOMED Code(s): 50450136 (3) Pyelonephritis Status: Acute Code(s): N12 - TUBULO-INTERSTITIAL NEPHRITIS, NOT SPCF ACUTE OR CHRONIC SNOMED Code(s): 38951077 (4) Sepsis Status: Acute Code(s): A41.9 - SEPSIS, UNSPECIFIED ORGANISM SNOMED Code(s): 85397687 Plan: 1patient presented to hospital with sepsis in this patient who did have fever tachycardia elevated white count meeting criteria for SIRS source is right-sided pyelonephritis with no evidence of any stones or hydronephrosis. 2E. coli bacteremia source is right-sided pyelonephritis. 3-penicillin allergy that will limit the number of antibiotics safe to use 4patient has shown clinical improvement on Rocephin she will finish therapy wi th oral Ceftin 500 mg twice a day for 10 days on discharge discussed with [employer] for admitting team working on discharge Dictation was produced using [employer] dictation software. please excuse any grammatical, word or spelling errors. Time with Patient: Less than 30
--- NOTE | 2024-11-10 13:15 | P.PN ---
Subjective Progress Note Date: 11/10/24 SURGICAL PROGRESS NOTE CHIEF COMPLAINT: Pyelonephritis HISTORY OF PRESENT ILLNESS: Patient reports she is feeling better. She is asking when she can go home. Patient reports she is starting to feel better. She is scheduled for discharge today. Afebrile. WBC is down from 18-12 PHYSICAL EXAM: VITAL SIGNS: Reviewed. GENERAL: Well-developed in no acute distress. ABDOMEN: Soft. Nondistended. NEUROLOGIC: Alert and oriented. Cranial nerves II through XII grossly intact. ASSESSMENT: 1. Right sided pyelonephritis 2. Status post recent laparoscopic appendectomy on 10/13/2024 3. Loops of dilated fluid-filled small bowel with findings likely related to developing ileus noted on CT scan. Patient had bowel movement prior to admission PLAN: -No surgical intervention planned -Continue regular diet -Continue antibiotics for pyelonephritis per ID service -Patient can be discharge from surgical standpoint Physician Oral Communication Instructor note has been reviewed by physician. Signing provider agrees with the documented findings, assessment, and plan of care. Objective - Vital Signs Vital signs: Vital Signs Temp 98.0 F 11/10/24 08:22 Pulse 84 11/10/24 08:22 Resp 15 11/10/24 08:22 BP 99/60 11/10/24 08:22 Pulse Ox 99 11/10/24 08:22 FiO2 Intake & Output 11/09/24 11/10/24 11/10/24 18:59 06:59 18:59 Intake Total 236 540 Balance 236 540 Intake: Oral 236 540 Other: # Voids 5 3 - Labs CBC & Chem 7: 11/09/24 13:02 11/09/24 04:46 Labs: Abnormal Lab Results - Last 24 Hours (Table) 11/09/24 11/09/24 Range/Units 13:02 13:02 WBC 12.9 H (4.0-11.0) k/uL RBC 2.95 L (3.80-5.40) m/uL Hgb 7.5 L D (11.4-16.0) gm/dL Hct 23.2 L (34.0-46.0) % MCV 78.7 L (80.0-100.0) fL RDW 15.8 H (11.5-15.5) % Iron <6 L (50-170) UG/DL % Saturation <2.29 L (12.00-45.00) Transferrin 187.0 L (204.0-354.0) mg/dL Microbiology - Last 24 Hours (Table) 11/07/24 20:50 Blood Culture Gram Stain - Final Blood Blood Culture - Final Escherichia coli Molecular ID 11/07/24 20:05 Urine Culture - Final Urine,Voided Escherichia coli
== END 2024-11-10 12:23 | disposition home or self-care (01) | DRG 872 ==
LOC: EC 18:47 → 4SSUR 21:45 → OBSVTOIN 21:46 → 4SSUR 23:38 → 5NMEDONC 11-08 05:18 → 3SCARD 11-08 05:43 → 6NMEDSUR 11-08 08:56
PROVIDERS: ADMIT Internal Medicine; ATTEND Internal Medicine
DX: A41.51 Sepsis due to Escherichia coli [E. coli] (principal); N10 Acute pyelonephritis; E87.20 Acidosis, unspecified; K56.7 Ileus, unspecified; K91.89 Other postprocedural complications and disorders of digestive system; N39.0 Urinary tract infection, site not specified; I95.9 Hypotension, unspecified; D64.9 Anemia, unspecified; F12.10 Cannabis abuse, uncomplicated; E87.6 Hypokalemia; E83.42 Hypomagnesemia; R94.31 Abnormal electrocardiogram [ECG] [EKG]; G40.909 Epilepsy, unspecified, not intractable, without status epilepticus; Z90.49 Acquired absence of other specified parts of digestive tract; Z88.0 Allergy status to penicillin; Z87.891 Personal history of nicotine dependence
CPT/HCPCS: 36415; 74177; 80053; 80306; 81001; 81025; 83540; 83550; 83605; 83690; 83735; 85025; 85027; 87040; 87077; 87086; 87186; 87636; 93005; 96361; 96374; 96375; 96376; 99285